=== PATIENT | male | born 1965 | race Caucasian/White ===

== ENCOUNTER 2018-01-19 09:38 | Emergency (ER) | payer OTHER ==
[~2018-01-19] VITALS: Ht 190.5 cm; Wt 81.6 kg
[2018-01-19] MEDS ORDERED: DULOXETINE HCL60 MG PO (09:56)
--- NOTE | 2018-01-19 10:05 | ED GI/GU/ABDOMINAL COMPLAINT ---
History of Present Illness General Chief Complaint: Abdominal Pain/Flank Pain Stated Complaint: LFT FLANK PAIN VOMITING Source: patient, family, old records Exam Limitations: no limitations Vital Signs & Intake/Output Vital Signs & Intake/Output Vital Signs Date Time Temp Pulse Resp B/P B/P Pulse O2 O2 Flow FiO2 Mean Ox Delivery Rate 01/19 1516 97.4 68 18 135/70 98 Room Air Room Air 01/19 1237 98.0 60 18 136/78 100 Room Air 01/19 1025 98 Room Air Room Air 01/19 0951 96.1 108 28 169/108 99 Room Air Allergies Coded Allergies: morphine (Intermediate, HIVES 01/19/18) Reconcile Medications Duloxetine HCl 60 MG CAPSULE.DR 1 CAP PO DAILY UNKNOWN (Reported) Hydrocodone/Acetaminophen ([place] 5-325 Tablet) 5 MG-325 MG TABLET 1-2 TAB PO Q4-6 PRN PRN severe pain Ibuprofen 600 MG TABLET 1 TAB PO TID pain with food Ondansetron (Zofran Odt) 4 MG TAB.RAPDIS 1 TAB SL TID PRN nausea Triage Note: PT VOMITTING ALL MORNING, PT VOMITTING THIS AM AND STATES THAT THE VOMIT WAS BROWN AND NOT HIS CEREAL. LEFT LOWER BACK PAIN 10/10 PT IS CRYING AND SHAKING IN TRIAGE AND HARD TO SPEAK TO AND GET STORY.. PT IS ON CHRONIC PAIN MANAGMENT. 2 WEEKS PT STATES HE HAS HAD HOT FLASHES. PER PT PT SMOKES POT. Triage Nurses Notes Reviewed? yes Onset: Just prior to arrival Duration: hour(s):, constant, continues in ED, getting worse Timing: recent history Quality/Severity: sharpness, severe, vomiting Location: left flank Radiation: no radiation Activities at Onset: rest Prior Abdominal Problems: none Past Sexual History: Unobtainable at this time No Modifying Factors: none Associated Symptoms: abdominal pain, loss of appetite, nausea/vomiting HPI: Several hours prior to admission patient awoke with severe sharp progressive left flank pain nonradiating constant associated with nausea vomiting diaphoresis. He denies fever chills diarrhea chest pain cough shortness breath headache dysuria rash bleeding. Past History Travel History Traveled to [place] past 21 day No Medical History Any Pertinent Medical History? see below for history Musculoskeletal: chronic back pain Tetanus Vaccine: 05/31/12 Surgical History Surgical History: non-contributory Psychosocial History What is your primary language [place] Tobacco Use: Quit >30 days ago Family History Hx Contributory? No Review of Systems Review of Systems Constitutional: Reports: see HPI, diaphoresis. EENTM: Reports: no symptoms. Respiratory: Reports: no symptoms. Cardiovascular: Reports: no symptoms. GI: Reports: see HPI, abdominal pain, nausea, vomiting. Genitourinary: Reports: no symptoms. Musculoskeletal: Reports: no symptoms. Skin: Reports: no symptoms. Neurological/Psychological: Reports: no symptoms. Hematologic/Endocrine: Reports: no symptoms. Immunologic/Allergic: Reports: no symptoms. All Other Systems: Reviewed and Negative Physical Exam Physical Exam General Appearance: well developed/nourished, alert, awake, anxious, severe distress, thin Head: atraumatic, normal appearance Eyes: Bilateral: normal appearance, EOMI, normal inspection. Ears, Nose, Throat, Mouth: hearing grossly normal, moist mucous membrane Neck: normal inspection, supple, full range of motion, normal alignment Respiratory: normal breath sounds, chest non-tender, no respiratory distress, quiet respiration, lungs clear Cardiovascular: regular rate/rhythm, normal peripheral pulses, norml femoral pulses equa Peripheral Pulses: 4+ carotid (R), 4+ carotid (L) Gastrointestinal: normal bowel sounds, soft, non-tender, no organomegaly Male Genitals: normal genitalia Back: normal inspection, normal range of motion, no vertebral tenderness Extremities: normal range of motion, no ligament instability Neurologic/Psych: no motor/sensory deficits, awake, alert, oriented x 3, normal gait, normal mood/affect, lard maker II-XII nml as tested Skin: intact, normal color, diaphoresis Core Measures ACS in differential dx? No Sepsis Present: No Sepsis Focused Exam Completed? No Progress Differential Diagnosis: gastritis, pancreatitis, PUD/GERD, ureterolithiasis Plan of Care: Orders Procedure Date/time Status URINALYSIS 01/19 0950 Complete LIPASE 01/19 0950 Complete COMPREHENSIVE METABOLIC PANEL 01/19 0950 Complete CBC WITHOUT DIFFERENTIAL 01/19 0950 Complete Current Medications Sig/Vamshi Start time Last Medication Dose Stop Time Status Admin Meperidine HCl 100 MG ONCE ONE 01/19 1000 CAN (Demerol) 01/19 1001 Laboratory Tests 01/19/18 1316: Urinalysis LIGHT H, Urine Color YEL, Urine Clarity HAZY H, Urine pH 7.5, Ur Specific [place] 1.020, Urine Protein 30 H, Urine Ketones >=80, Urine Nitrite NEG, Urine Bilirubin NEG, Urine Urobilinogen 0.2, Ur Leukocyte Esterase NEG, Ur Microscopic SEDIMENT EXAMINED, Urine RBC RARE, Ur Epithelial Cells FEW, Urine Bacteria FEW H, Urine Hemoglobin NEG, Urine Glucose NEG 01/19/18 1010: Anion Gap 15, Estimated GFR > 60, BUN/Creatinine Ratio 23.3, Glucose 131 H, Calcium 10.4 H, Total Bilirubin 0.9, AST 22, ALT 26, Alkaline Phosphatase 81, Total Protein 7.6, Albumin 4.6, Globulin 3.0, Albumin/Globulin Ratio 1.5, Lipase 181, CBC w Diff MAN DIFF ORDERED, RBC 4.76, MCV 95.7 H, MCH 33.2 H, MCHC 34.6, RDW 12.3, MPV 7.3 L, Gran % 86.8 H, Lymphocytes % 7.8 L, Monocytes % 4.1, Eosinophils % 1.1, Basophils % 0.2, Absolute Granulocytes 16.9 H, Segmented Neutrophils 82 H, Band Neutrophils 5, Absolute Lymphocytes 1.5, Lymphocytes 9 L, Monocytes 2, Absolute Monocytes 0.8 H, Eosinophils 2, Absolute Eosinophils 0.2, Absolute Basophils 0, Platelet Estimate ADEQUATE, Normocytic RBCs VERIFIED, Normochromic RBCs VERIFIED Diagnostic Imaging: Viewed by Me: CT Scan. Discussed w/RAD: CT Scan. Radiology Impression: 1. No evidence of renal stones or obstructive uropathy. 2. No acute bowel pathology. 3. 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 4. Degenerative changes L5-S1 level. Initial ED EKG: none Departure Departure Time of Disposition: 1406 Disposition: HOME OR SELF CARE Condition: Stable Clinical Impression Primary Impression: Acute left flank pain Secondary Impressions: Dehydration, Nausea and vomiting Referrals: [place] VILCHIS,Vamsi Blanchard (PCP/Family) Rigoberto Sethi MD Call for urology follow up Departure Forms: Customer Survey General Discharge Information Prescriptions: Current Visit Scripts Ibuprofen 1 TAB PO TID #30 TAB with food Ondansetron (Zofran Odt) 1 TAB SL TID PRN nausea #15 TAB Hydrocodone/Acetaminophen ([place] 5-325 Tablet) 1-2 TAB PO Q4-6 PRN PRN severe pain #15 TAB
[2018-01-19 10:19] LABS: ABSOLUTE BASOPHIL COUNT 0 /CUMM (0.0-0.2); ABSOLUTE EOSINOPHIL COUNT 0.2 /CUMM (0.0-0.7); ABSOLUTE GRANULOCYTE CT 16.9 /CUMM (1.4-6.5); ABSOLUTE LYMPH COUNT 1.5 /CUMM (1.2-3.4); ABSOLUTE MONOCYTE COUNT 0.8 /CUMM (0.10-0.60); BASOPHIL % 0.2 % (0.0-2.0); EOSINOPHIL % 1.1 % (0-5); GRANULOCYTE % 86.8 % (42.2-75.2); HEMATOCRIT 45.5 % (42-52); MEAN CORPUSCULAR HGB 33.2 PG (27.0-31.0); MEAN CORPUSCULAR HGB CONC 34.6 G/DL (33.0-37.0); MEAN CORPUSCULAR VOLUME 95.7 FL (80.0-94.0); MEAN PLATELET VOLUME 7.3 FL (7.4-10.4); PLATELET COUNT 400 /CUMM (130-400); RBC DISTRIBUTION WIDTH 12.3 % (11.5-14.5); RED BLOOD CELL CT 4.76 /CUMM (4.70-6.10); WHITE BLOOD CELL COUNT 19.4 /CUMM (4.8-10.8)
--- NOTE | 2018-01-19 12:26 | CT SCAN REPORT ---
EXAMINATION: CT ABDOMEN AND PELVIS WITHOUT CONTRAST CLINICAL INFORMATION: Renal colic. Left flank pain. COMPARISON: None TECHNIQUE: Multidetector volumetric imaging was performed from the superior aspect of the liver through the pubic symphysis. Sagittal and coronal reformatted images were obtained on the technologist's workstation. DLP: 275.80 mGy-cm FINDINGS: LUNG BASES: The visualized lung bases are unremarkable. LIVER, GALLBLADDER, AND BILIARY TREE: The liver is normal in size, shape, and attenuation. No focal hepatic lesion or biliary ductal dilatation is present. The gallbladder is unremarkable with no evidence of radiopaque gallstones, gallbladder wall thickening, or obvious pericholecystic inflammatory changes. PANCREAS: Unremarkable. SPLEEN: Unremarkable. ADRENAL GLANDS: Unremarkable. KIDNEYS AND URETERS: The kidneys are normal in size, shape, and attenuation. No hydronephrosis, hydroureter, or calculi seen. No perinephric stranding. BLADDER: Unremarkable. GASTROINTESTINAL TRACT: No acute bowel pathology. Assessment of the stomach and bowel loops is limited due to incomplete distention. Nonobstructive bowel gas pattern. Fatty structure noted at the junction of second and third portion of duodenum likely represents a lipoma (series 2 image 38) ABDOMINAL WALL: No significant hernia is appreciated. LYMPH NODES: Normal. VASCULAR: Unremarkable. PELVIC VISCERA: Unremarkable. OSSEOUS STRUCTURES: Degenerative changes L5-S1 level. No acute or suspicious osseous abnormality. IMPRESSION: 1. No evidence of renal stones or obstructive uropathy. 2. No acute bowel pathology. 3. 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 4. Degenerative changes L5-S1 level.
[2018-01-19] MEDS ORDERED: ZOFRAN ODT4 M1 SL (14:08)
[2018-01-19] MEDS ORDERED: IBUPROFEN600 M1 PO (14:08)
[2018-01-19] MEDS ORDERED: NORCO 5-325 TA1 EACH PO (14:08)
[2018-01-19 15:16] VITALS: BP 135/70
== END 2018-01-19 15:16 ==
LOC: ERH 09:38
PROVIDERS: Emergency Medicine
DX: R10.9 Unspecified abdominal pain (principal); E86.0 Dehydration; R11.2 Nausea with vomiting, unspecified
CPT/HCPCS: 74176; 81001; 96361; 96365; 96375; 99291; J1885; J2405

== ENCOUNTER 2018-01-20 01:50 | Inpatient (IN) | payer OTHER ==
[~2018-01-20] VITALS: Ht 190.5 cm; Wt 81.6 kg
[~2018-01-20 01:50] MED LIST: DULOXETINE HCL60 MG PO; IBUPROFEN600 M1 PO; NORCO 5-325 TA1 EACH PO; ZOFRAN ODT4 M1 SL
--- NOTE | 2018-01-20 02:02 | ED GI/GU/ABDOMINAL COMPLAINT ---
History of Present Illness General Chief Complaint: Abdominal Pain/Flank Pain Stated Complaint: SEEN EARLY TODAY FOR ABD PAIN Source: patient, old records Exam Limitations: no limitations Vital Signs & Intake/Output Vital Signs & Intake/Output Vital Signs Date Time Temp Pulse Resp B/P B/P Pulse O2 O2 Flow FiO2 Mean Ox Delivery Rate 01/20 0216 Room Air 01/20 0156 97.7 87 22 169/116 100 Room Air Allergies Coded Allergies: morphine (Intermediate, HIVES 01/20/18) Reconcile Medications Duloxetine HCl 60 MG CAPSULE.DR 1 CAP PO DAILY UNKNOWN (Reported) Hydrocodone/Acetaminophen ([place] 5-325 Tablet) 5 MG-325 MG TABLET 1-2 TAB PO Q4-6 PRN PRN severe pain Ibuprofen 600 MG TABLET 1 TAB PO TID pain with food Ondansetron (Zofran Odt) 4 MG TAB.RAPDIS 1 TAB SL TID PRN nausea Triage Note: TRIAGE: PATIENT TO ER FROM HOME REPORTS SEEN HERE EARLIER TODAY, "DIDN'T FIND ANYTHING." PATIENT REPORTS PAIN TO L FLANK SINCE YESTERDAY AM, SINCE 10:30PM PAIN IN L FLANK AND SEVERE PAIN IN L ABDOMEN. +NAUSEA/VOMITTING DESPITE TAKING ZOFRAN AT APPROX 11PM AND PAIN MEDICATION. REPORTS HAS NOT URINATED SINCE HE LEFT THE ED THOUGH OTHERWISE DENIES ANY URINARY DIFFICULTIES/ DISCOMFORT. PATIENT WRITHING ON STRETCHER, UNABLE TO REMAIN STILL. MD AWAD AT BEDSIDE IN TRIAGE FOR EVAL. Triage Nurses Notes Reviewed? yes HPI: Patient comes back to the emergency department with worsening pain in his left flank and it is now radiating into his left mid abdomen. The pain started this morning associated with nausea and vomiting. Patient was seen in the emergency department and everything was normal with the exception of white blood cell count of 19,000. Patient had a CAT scan which was normal and a urine which is not showing any blood. Of note his calcium level was slightly elevated at 10.4. Patient was subsequently sent home however the pain worsened and is now mainly in his left mid abdomen. He continues to have nausea and vomiting. The pain is 10 out of 10. The pain is sharp and cramping and burning in nature. It radiates as noted above. The pain is constant. There are no aggravating or mitigating factors. Past History Travel History Traveled to [place] past 21 day No Medical History Any Pertinent Medical History? see below for history Musculoskeletal: chronic back pain Tetanus Vaccine: 05/31/12 Surgical History Surgical History: non-contributory Psychosocial History What is your primary language Upper Sorbian Tobacco Use: Quit >30 days ago ETOH Use: occasional use Illicit Drug Use: denies illicit drug use Family History Hx Contributory? No Review of Systems Review of Systems Constitutional: Reports: no symptoms. EENTM: Reports: no symptoms. Respiratory: Reports: no symptoms. Cardiovascular: Reports: no symptoms. GI: Reports: see HPI, abdominal pain, nausea, vomiting. Genitourinary: Reports: no symptoms. Musculoskeletal: Reports: see HPI, back pain. Skin: Reports: no symptoms. Neurological/Psychological: Reports: no symptoms. Hematologic/Endocrine: Reports: no symptoms. Immunologic/Allergic: Reports: no symptoms. All Other Systems: Reviewed and Negative Physical Exam Physical Exam General Appearance: well developed/nourished, alert, awake, anxious, severe distress Head: atraumatic, normal appearance Eyes: Bilateral: PERRL, EOMI, other (ANICTERIC). Ears, Nose, Throat, Mouth: hearing grossly normal, DRYMUCOSA Neck: normal inspection, supple, full range of motion Respiratory: normal breath sounds, chest non-tender, no respiratory distress, lungs clear Cardiovascular: regular rate/rhythm, normal peripheral pulses Gastrointestinal: normal bowel sounds, soft, no organomegaly, tenderness (LMQ) Back: normal inspection, normal range of motion Neurologic/Psych: no motor/sensory deficits, awake, alert, oriented x 3, normal mood/affect Core Measures ACS in differential dx? No Sepsis Present: No Sepsis Focused Exam Completed? No Progress Differential Diagnosis: bowel obstruction, cholecystitis, diverticulitis, gastritis, hepatitis, ischemic bowel, inflamm bowel dis, pancreatitis, peptic ulcer, PUD/GERD Plan of Care: Orders Procedure Date/time Status Add-on Test (ER Only) 01/20 0257 Active EKG 01/20 0211 Active LIPASE 01/20 0155 Complete COMPREHENSIVE METABOLIC PANEL 01/20 015 Complete CBC WITHOUT DIFFERENTIAL 01/20 015 Complete AMYLASE 01/20 015 Complete Current Medications Sig/Vamshi Start time Last Medication Dose Stop Time Status Admin Ketorolac 30 MG ONCE ONE 01/20 0300 UNVr Tromethamine 01/20 030 (Toradol) Sodium Chloride 1,000 ML BOLUS ONE 01/20 030 UNVr (Normal Saline 0.9%) 01/20 0359 Sodium Chloride 1,000 ML BOLUS ONE 01/20 0215 AC 01/20 (Normal Saline 0.9%) 01/204 0206 Laboratory Tests 01/20/18 0208: Anion Gap 16, Estimated GFR > 60, BUN/Creatinine Ratio 17.8, Glucose 137 H, Calcium 10.0, Total Bilirubin 1.2, AST 21, ALT 33, Alkaline Phosphatase 81, Total Protein 7.0, Albumin 4.3, Globulin 2.7, Albumin/Globulin Ratio 1.6, Amylase 110, Lipase 440 H, CBC w Diff MAN DIFF ORDERED, RBC 4.70, MCV 98.1 H, MCH 32.1 H, MCHC 32.8 L, RDW 12.6, MPV 7.6, Gran % 83.4 H, Lymphocytes % 10.6 L, Monocytes % 4.9, Eosinophils % 0.7, Basophils % 0.4, Absolute Granulocytes 16.7 H, Segmented Neutrophils 84 H, Band Neutrophils 1, Absolute Lymphocytes 2.1, Lymphocytes 11 L, Monocytes 4, Absolute Monocytes 1.0 H, Absolute Eosinophils 0.1, Absolute Basophils 0.1, Platelet Estimate INCREASED, Hypochromic-Microcytic 1+, Ovalocytes FEW, Stomatocytes FEW, Fld Total RBCs Counted 100 Initial ED EKG: SR, PAC, NSSTT CHANGES Comments: CT REVIEWED FROM EARLIER. Departure Departure Disposition: STILL A PATIENT Condition: Stable Clinical Impression Primary Impression: Leukocytosis Secondary Impressions: Elevated lipase, Upper abdominal pain, unspecified Referrals: [place] VILCHIS,Vamsi Blanchard (PCP/Family) Departure Forms: Customer Survey General Discharge Information Observation Note Spoke With: Conor Uriarte MD Physician Advisor Notified: DELMI VILCHIS,ELISSA [facility] [address] Patient In: Non-ED OBS Care Area Rationale for Observation: My rational for observation is as follows [NPO, IV FLUIDS, PAIN CONTROL, GI CONSULTATION].
[2018-01-20 02:17] LABS: ABSOLUTE BASOPHIL COUNT 0.1 /CUMM (0.0-0.2); ABSOLUTE EOSINOPHIL COUNT 0.1 /CUMM (0.0-0.7); ABSOLUTE GRANULOCYTE CT 16.7 /CUMM (1.4-6.5); ABSOLUTE LYMPH COUNT 2.1 /CUMM (1.2-3.4); BASOPHIL % 0.4 % (0.0-2.0); EOSINOPHIL % 0.7 % (0-5); GRANULOCYTE % 83.4 % (42.2-75.2); HEMATOCRIT 46.1 % (42-52); MEAN CORPUSCULAR HGB 32.1 PG (27.0-31.0); MEAN CORPUSCULAR HGB CONC 32.8 G/DL (33.0-37.0); MEAN CORPUSCULAR VOLUME 98.1 FL (80.0-94.0); MEAN PLATELET VOLUME 7.6 FL (7.4-10.4); PLATELET COUNT 412 /CUMM (130-400); RBC DISTRIBUTION WIDTH 12.6 % (11.5-14.5)
--- NOTE | 2018-01-20 03:14 | History & Physical ---
Ruben VILCHIS,Murphy 01/20/18 0313: General Information and HPI MD Statement: I have seen and personally examined LYNN VILLAFANA and documented this H&P. The patient is a 52 year old M who presented with a patient stated chief complaint of [L back and flank pain, nausea and vomiting]. Source of Information: patient Exam Limitations: no limitations History of Present Illness: Patient is a 52-year-old male with a piece MH significant for chronic back pain, chronic lung disease who presented to the [facility] ED yesterday complaining of intractable back/flank pain, nausea and vomiting. He got a CT abdomen and pelvis which showed no acute abnormalities, lab work was only significant for leukocytosis with bandemia, mild hypercalcemia. His pain was relieved by IV Demerol and he was sent home. His pain came back in the middle of the night awakening him from sleep prompting him to return to the ED. Repeat lab work showed persistent leukocytosis. He continues to complain of 10/10 pain , and has had reportedly 10-12 episodes of vomiting today. He endorses intermittent fever and chills. He denies any dysuria, hematuria, diarrhea, chest pain, shortness of breath. During the exam patient had several episodes of retching and some dark red/ coffee-ground emesis. Allergies/Medications Allergies: Coded Allergies: morphine (Intermediate, HIVES 01/20/18) Home Med list Duloxetine HCl 60 MG CAPSULE. 1 CAP PO DAILY UNKNOWN (Reported) Hydrocodone/Acetaminophen (Russell 5-325 Tablet) 5 MG-325 MG TABLET 1-2 TAB PO Q4-6 PRN PRN severe pain Ibuprofen 600 MG TABLET 1 TAB PO TID pain with food Ondansetron (Zofran Odt) 4 MG TAB.RAPDIS 1 TAB SL TID PRN nausea Past History Travel History Traveled to [place] past 21 day No Medical History Neurological: NONE EENT: NONE Cardiovascular: NONE Respiratory: NONE Gastrointestinal: NONE Hepatic: NONE Renal: NONE Musculoskeletal: chronic back pain Psychiatric: NONE Endocrine: NONE Blood Disorders: NONE Cancer(s): NONE TRAVELER CHANGER/Reproductive: NONE Other Medical Hx: chronic lyme Tetanus Vaccine: 05/31/12 Surgical History Surgical History: non-contributory Past Family/Social History Family History Relations & Conditions if any Relation not specified for: *No pertinent family history Psychosocial History Primary Language: Chilean Smoking Status: Former Smoker ETOH Use: occasional use Illicit Drug Use: marijuana Review of Systems Review of Systems Constitutional: Reports: chills, fever. EENTM: Reports: no symptoms. Cardiovascular: Reports: no symptoms. Respiratory: Denies: cough, orthopnea, short of breath. GI: Reports: abdominal pain, nausea, vomiting. Denies: constipation, diarrhea, melena, bloody stool. Genitourinary: Reports: no symptoms. Musculoskeletal: Reports: back pain. Skin: Reports: no symptoms. Neurological/Psychological: Reports: no symptoms. Exam & Diagnostic Data Last 24 Hrs of Vital Signs/I&O Vital Signs Date Time Temp Pulse Resp B/P B/P Pulse O2 O2 Flow FiO2 Mean Ox Delivery Rate 01/20 0307 97.5 91 20 155/89 99 Room Air 01/20 0216 Room Air 01/20 0156 97.7 87 22 169/116 100 Room Air Intake & Output 01/20 0800 01/20 0000 01/19 1600 Intake Total 2000 Output Total 100 Balance 1900 Intake, IV 2000 Output, 100 Emesis Patient 180 lb Weight Weight Reported by Patient Measurement Method Physical Exam General Appearance Alert, Oriented X3, Cooperative, Severe Distress Skin Temp/Moisture Exam: Warm/Dry Cardiovascular Regular Rate, Normal S1, Normal S2 Lungs Clear to Auscultation, Normal Air Movement Abdomen tender to palpation of the LUQ, RLQ, and umbilical area, no CVA tenderness Neurological Normal Gait, Normal Speech, Strength at 5/5 X4 Ext, Sensation Intact, Cranial Nerves 3-12 NL Extremities No Clubbing, No Cyanosis, No Edema Vascular Normal Pulses, Pulses Symmetrical Last 24 Hrs of Labs/Adán: Laboratory Tests 01/20/18 0208: Anion Gap 16, Estimated GFR > 60, BUN/Creatinine Ratio 17.8, Glucose 137 H, Calcium 10.0, Total Bilirubin 1.2, AST 21, ALT 33, Alkaline Phosphatase 81, Troponin I Pending, Total Protein 7.0, Albumin 4.3, Globulin 2.7, Albumin/ Globulin Ratio 1.6, Amylase 110, Lipase 440 H, CBC w Diff MAN DIFF ORDERED, RBC 4.70, MCV 98.1 H, MCH 32.1 H, MCHC 32.8 L, RDW 12.6, MPV 7.6, Gran % 83.4 H, Lymphocytes % 10.6 L, Monocytes % 4.9, Eosinophils % 0.7, Basophils % 0.4, Absolute Granulocytes 16.7 H, Segmented Neutrophils 84 H, Band Neutrophils 1, Absolute Lymphocytes 2.1, Lymphocytes 11 L, Monocytes 4, Absolute Monocytes 1.0 H, Absolute Eosinophils 0.1, Absolute Basophils 0.1, Platelet Estimate INCREASED, Hypochromic-Microcytic 1+, Ovalocytes FEW, Stomatocytes FEW, Fld Total RBCs Counted 100 Microbiology 01/21 436 URINE ROUT: Urine Culture - ORD 01/20 417 BLOOD: Blood Culture - RECD 01/21 416 BLOOD: Blood Culture - RECD Diagnostic Data EKG Results significant artifact, will repeat Other Results CT abd/pelvis LUNG BASES: The visualized lung bases are unremarkable. LIVER, GALLBLADDER, AND BILIARY TREE: The liver is normal in size, shape, and attenuation. No focal hepatic lesion or biliary ductal dilatation is present. The gallbladder is unremarkable with no evidence of radiopaque gallstones, gallbladder wall thickening, or obvious pericholecystic inflammatory changes. PANCREAS: Unremarkable. SPLEEN: Unremarkable. ADRENAL GLANDS: Unremarkable. KIDNEYS AND URETERS: The kidneys are normal in size, shape, and attenuation. No hydronephrosis, hydroureter, or calculi seen. No perinephric stranding. BLADDER: Unremarkable. GASTROINTESTINAL TRACT: No acute bowel pathology. Assessment of the stomach and bowel loops is limited due to incomplete distention. Nonobstructive bowel gas pattern. Fatty structure noted at the junction of second and third portion of duodenum likely represents a lipoma (series 2 image 38) ABDOMINAL WALL: No significant hernia is appreciated. LYMPH NODES: Normal. VASCULAR: Unremarkable. PELVIC VISCERA: Unremarkable. OSSEOUS STRUCTURES: Degenerative changes L5-S1 level. No acute or suspicious osseous abnormality. IMPRESSION: 1. No evidence of renal stones or obstructive uropathy. 2. No acute bowel pathology. 3. 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 4. Degenerative changes L5-S1 level. Assessment/Plan Assessment: Patient is a 52-year-old male with a piece MH significant for chronic back pain, chronic lung disease who presented with intractable L back and L flank pain with associated nausea and vomiting, this was initially resolved after receiving demerol in the ED pain. He was discharged home but returned with persistent pain. He is also having dark red/coffee-ground emesis secondary to multiple episodes of retching. He has no associated urinary symptoms. Vital signs on admission: T 97.7, P 87, RR 22, BP 169/6, pulse ox 100% on room air Labs significant for: WBC 20, bands 1, lipase 440 Problem list #Intractable left back and flank pain #Nausea and vomiting #Leukocytosis #Hypertension, Likely secondary to pain Plan -Place in observation on the general medicine floor -Follow-up urine toxicology -Pain control with by mouth Dilaudid, CT PRODUCTION FINISHER was reviewed showing no claim history of narcotics -Follow-up urinalysis for microscopic hematuria, discussed the CT abdomen and pelvis with hotel receptionist radiologist at [facility] Dr. Talavera, who confirmed that there is no nephrolithiasis seen. -Follow up lactic acid and CRP -Follow-up blood cultures -Repeat lipase and LFTs in a.m., low suspicion for pancreatitis given presentation, elevated lipase may be secondary to repeated episodes of emesis -IV Protonix -Repeat EKG when patient is more comfortable to avoid artifact -Control nausea with IV Zofran and Phenergan -Continue home duloxetine Diet: Nothing by mouth DVT prophylaxis: Lovenox, Alps CODE STATUS: Full code As Ranked By This Provider Problem List: 1. Elevated lipase 2. Leukocytosis 3. Upper abdominal pain, unspecified 4. Nausea and vomiting Core Measures/Misc (07/06) Acute Coronary Syndrome ACS Diagnosis: No Congestive Heart Failure Congestive Heart Failure Diagnosis No Cerebrovascular Accident CVA/TIA Diagnosis: No VTE (View Protocol) VTE Risk Factors Age>40 No Mechanical VTE Prophylaxis d/t N/A MechProphylax Ordered No VTE Pharm Prophylaxis d/t NA PharmProphylax ordered Sepsis (View protocol) Sepsis Present: No Observation Initial Note - I have personally examined LYNN VILLAFANA on 01/20/18 at 0441. The disposition of LYNN VILLAFANA is uncertain at this time and before a determination can be made, he requires a period of observation for the following reasons [intractable L back and flank pain with nausea and vomiting] Meng Dutton 01/20/18 0456: Resident Review Statement Resident Statement: examined this patient, discussed with international student counselor, reviewed images Other Findings: 52 year old gentleman former smoker (quit 6 months ago), marijuana user, chronic back pain and chronic lyme disease, came to [facility] ED on morning of 10/21/17 for left side abdominal pain and vomiting CT abdomen and pelvis was done which was unremarkable and he was sent home on pain medications. Return later as his symptoms did not improve. On interview reports having diffuse abdominal pain however mostly left-sided flank pain, severe 10 out of 10, multiple episodes of emesis since the past 2 days associated with decreased by mouth intake. Last few episodes of emesis have been coffee-ground. Endorses some fever and chills. Denies chest pain, shortness of breath, diarrhea, constipation, previous similar episodes, hematuria, history of kidney stones/gallstones, new food recently. Vitals temperature 97.5, heart rate 91, blood pressure 169/116-->155/89 , 99% on room air Labs pertinent for WBC of 20 with a band of 5 which trended down to 1, hemoglobin 15.1, hematocrit 46.1, platelet for 112, sodium 139, potassium 2.9, chloride 101, B1 16, creatinine 0.9, glucose 137, lactic acid pending, calcium 10, AST 21, ALT 33, ALP 81,, amylase 110, lipase 440, repeat UA pending, U tox pending CT ABDOMEN AND PELVIS WITHOUT CONTRAST IMPRESSION: 1. No evidence of renal stones or obstructive uropathy. 2. No acute bowel pathology. 3. 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 4. Degenerative changes L5-S1 level. Assessment: In view of his leukocytosis clinical picture of severe left flank pain and vomiting he could possibly have passed a kidney stone. CT abdomen and pelvis without contrast reliably detects hydronephrosis and is the best diagnostic investigation for nephrolithiasis. Radiologist was also called to view the images again and no acute pathology was noted. Elevated lipase could also be secondary to his vomiting. Other differentials are gastroenteritis versus cannabis hyperemesis syndrome. Plan: We'll admit to general medicine floor as an observation, vitals per protocol Will repeat lipase and LFTs in the morning, will repeat UA Follow-up lactic, CRP Will repeat EKG has the first one had extensive artifact Keep patient nothing by mouth, IV PPI daily pain control with Toradol and Dilaudid for severe pain. Nothing by mouth for now advanced diet as tolerated Zofran for nausea Gentle fluids for hydration Continue home medication of Cymbalta CPMP was reviewed and no record was present. DVT prophylaxis with subcutaneous Lovenox Full code Conor Uriarte 01/20/18 0514: Attending MD Review Statement Attending Statement Attending MD Statement: examined this patient, discuss w/resident/PA/[employer], agreed w/resident/PA/[employer], reviewed EMR data (avail), reviewed images, amended to note Attending Assessment/Plan: CC: Abdominal pain, nausea, vomiting PMH: Chronic back pain, "chronic Lyme disease" Patient was seen in ER are earlier in the day for abdominal pain and flank pain. Patient woke up with the pain, severe, left-sided flank and abdominal pain, radiating to back, associated with nausea and several episodes of vomiting, could not eat anything so he came to ER. Patient was evaluated in ER with labs and CT scan, had mild leukocytosis otherwise unremarkable, received some pain medications, symptomatic it improved and then discharged. After going home patient tried to sleep but then pain recurred with vomiting, coffee-ground emesis, severe retching. All this while he was also feeling fever and chills, he denies any urinary frequency, burning, constipation, shortness of breath, chest pain. Patient is moaning in pain and provides limited history. He denies any history of renal stone, gallbladder stone. He states that he had fever and vomiting several years back when he was diagnosed to have " chronic Lyme disease " Vitals: Afebrile, pulse 87, RR 22, blood pressure 169/116, saturating well on room air. On exam: A O 3, cooperative, no acute distress, neck supple, JVD normal, no lymphadenopathy, mucosa moist, no focal neurological deficit, no dependent edema , no obvious skin rashes or inflammation CVS: S1-S2, RRR. RS: Clear to auscultate bilaterally. Abdomen: diffusely Tender, soft, no guarding or rigidity , ND, bowel sounds present. CT abdomen and pelvis without IV contrast: (01/19/18) 1. No evidence of renal stones or obstructive uropathy. 2. No acute bowel pathology. 3. 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 4. Degenerative changes L5-S1 level. Assessment and plan 52-year-old male with past medical history significant for chronic back pain present in ER for 1 day episode of severe flank pain, radiating to abdomen and back, several episodes of nausea, vomiting, now coffee-ground emesis, retching, mild fever and chills. No urinary symptoms, no history of renal stones. Patient was evaluated in ER earlier today, was given meperidine and Toradol with symptomatic relief and patient was discharged home. Patient came back again for similar symptoms, appears restless, moaning in pain and provides limited history. On examination he is diffusely tender all over her abdomen and left flank, no localization, no guarding or rigidity, abdomen is soft, Espinal's sign negative. His labs are unremarkable except mild leukocytosis and left shift which is worsened as compared to morning, his lipase is elevated from 181 to 440. Elevation in lipase could be secondary to vomiting itself, does not appear to be pancreatitis at this point but patient would benefit from observation on Gen. medicine to exclude this possibility of pancreatitis. He may have gastritis which may need to nausea vomiting and abdominal pain. CT imaging reviewed with radiologist again who did not find any focalizing abnormality. + Abdominal pain unclear etiology + Nausea vomiting + Leukocytosis - Place in observation on Gen. medicine - Obtain blood culture - Trend lactate - Repeat LFT, lipase and CRP in a.m. - Adequate pain control - Gentle hydration - Check CT PRODUCTION FINISHER records - Protonix 40 mg IV - When necessary Zofran or Phenergan for nausea vomiting - Repeat CBC in a.m. - DVT prophylaxis with Alps only
[2018-01-20 04:41] VITALS: BP 170/110
[2018-01-20 06:51] VITALS: BP 162/90
--- NOTE | 2018-01-20 07:12 | PN- Housestaff ---
Phuc VILCHIS,Damon 01/20/18 0712: Subjective Follow-up For: Abdominal Pain Subjective: Mr Acuña was seen and examined this morning. Appears somnolent and states that he feels exhausted. States that his pain is significantly better. Rated at a 2/10 in severity. States that he has had significant relief from pain medication. Fluids currently running. States does not have much or an appetitte. Denies any fever, chills, nausea or vomiting. Review of Systems Constitutional: Reports: see HPI. Objective Last 24 Hrs of Vital Signs/I&O Vital Signs Date Time Temp Pulse Resp B/P B/P Pulse O2 O2 Flow FiO2 Mean Ox Delivery Rate 01/20 1637 80 168/100 01/20 1420 98.8 67 18 170/110 99 Room Air 01/20 0651 97.9 82 20 162/90 97 Room Air 01/20 0441 98.0 64 20 170/110 98 Room Air 01/20 0307 97.5 91 20 155/89 99 Room Air 01/20 0216 Room Air 01/20 0156 97.7 87 22 169/116 100 Room Air Intake & Output 01/20 1600 01/20 0800 01/20 0000 Intake Total 425 2150 Output Total 450 Balance 425 1700 Intake, IV 425 2150 Intake, Oral 0 Output, 100 Emesis Output, Urine 350 Patient 81.647 kg Weight Weight Reported by Patient Measurement Method Physical Exam General Appearance: Alert, Oriented X3, Cooperative, Mild Distress HEENT: Mucous Membr. moist/pink Cardiovascular: Regular Rate, Normal S1, Normal S2 Lungs: Clear to Auscultation Abdomen: Normal Bowel Sounds, Soft, Mild tenderness noted on light palpation. Espinal +. Tenderness noted on LUQ Neurological: Normal Gait, Normal Speech, Normal Tone Extremities: No Edema Current Medications: Current Medications Sig/Vamshi Start time Last Medication Dose Route Stop Time Status Admin Acetaminophen 650 MG Q4P PRN 01/20 0400 AC PO Acetaminophen 1,000 MG ONCE ONE 01/20 0215 DC 01/20 N/A 1 UNIT IV 01/20 0229 0213 Acetaminophen 0 .STK-MED ONE 01/20 0209 DC IV Amlodipine Besylate 5 MG ONCE ONE 01/20 1430 DC 04/ PO 01/20 1431 1637 Chlorhexidine 1 GM .STK-MED ONE 01/20 1352 DC Gluconate TOP 01/20 1353 Dextrose/Sodium 1,000 ML Q10H 01/20 0945 DC 01/20 Chloride IV 1001 Duloxetine HCl 60 MG DAILY 01/20 1000 AC 01/20 PO 1004 Enoxaparin Sodium 40 MG DAILY 01/20 1000 CAN SC Hydralazine HCl 10 MG ONCE ONE 01/20 1430 CAN PO 01/20 1431 Hydromorphone HCl 2 MG Q6P PRN 01/20 0415 AC 01/20 PO 0507 Ketorolac 30 MG Q6-PRN PRN 01/20 0400 AC 01/20 Tromethamine IV 1635 Ketorolac 0 .STK-MED ONE 01/20 0306 DC Tromethamine .ROUTE Ketorolac 30 MG ONCE ONE 01/20 0300 DC 01/20 Tromethamine IV 01/20 0301 0305 Omeprazole 20 MG BID 01/20 2200 AC PO Ondansetron HCl 4 MG Q6P PRN 01/20 0400 AC IV Ondansetron HCl 4 MG ONCE ONE 01/20 0215 DC 01/20 IV 01/20 0216 0213 Ondansetron HCl 0 .STK-MED ONE 01/20 0209 DC .ROUTE Pantoprazole Sodium 0 .STK-MED ONE 01/20 0406 DC IV Pantoprazole Sodium 40 MG DAILY 01/20 0400 DC 01/20 IV 0407 Patient Medication 1 ED ONE ONE 01/20 1630 DC Teaching ED 01/20 1631 Promethazine HCl 25 MG ONCE ONE 01/20 0330 DC 01/20 IV 01/20 0331 0330 Promethazine HCl 0 .STK-MED ONE 01/20 0329 DC .ROUTE Sodium Chloride 1,000 ML Q13H 01/20 0400 DC 03 IV 0507 Sodium Chloride 1,000 ML BOLUS ONE 01/20 0300 DC / IV 01/20 0359 0305 Sodium Chloride 1,000 ML BOLUS ONE 01/20 0215 DC 01/20 IV 01/20 0314 0206 Last 24 Hrs of Lab/Adán Results Last 24 Hrs of Labs/Mics: Laboratory Tests 01/20/18 1646: Gastrin Pending 01/20/18 0850: Anion Gap 9, Estimated GFR > 60, BUN/Creatinine Ratio 13.8, Lactic Acid 0.7, Total Bilirubin 1.0, Direct Bilirubin 0.4, AST 14 L, ALT 27, Alkaline Phosphatase 59, C-React Prot High Sens 0.3 L, Total Protein 5.8 L, Albumin 3.4 L, Lipase 58, CBC w Diff NO MAN DIFF REQ, RBC 4.03 L, MCV 96.2 H, MCH 33.1 H , MCHC 34.4, RDW 12.3, MPV 7.6, Gran % 86.7 H, Lymphocytes % 9.6 L, Monocytes % 3.4, Eosinophils % 0, Basophils % 0.3, Absolute Granulocytes 10.1 H, Absolute Lymphocytes 1.1 L, Absolute Monocytes 0.4, Absolute Eosinophils 0, Absolute Basophils 0 01/20/18 0730: Urine Opiates Screen 341.00, Methadone Screen 78, Barbiturate Screen < 60, Ur Phencyclidine Scrn < 6.00, Amphetamines Screen < 100, U Benzodiazepines Scrn < 85, Urine Cocaine Screen < 50, Urine Cannabis Screen > 80.00 H, Urine Color YEL , Urine Clarity CLEAR, Urine pH 6.0, Ur Specific [place] 1.020, Urine Protein NEG, Urine Ketones 40 H, Urine Nitrite NEG, Urine Bilirubin NEG, Urine Urobilinogen 0.2, Ur Leukocyte Esterase NEG, Ur Microscopic EXAM NOT REQUIRED, Urine Hemoglobin NEG, Urine Glucose NEG 01/20/18 0208: Anion Gap 16, Estimated GFR > 60, BUN/Creatinine Ratio 17.8, Glucose 137 H, Calcium 10.0, Total Bilirubin 1.2, AST 21, ALT 33, Alkaline Phosphatase 81, Troponin I < 0.01, Total Protein 7.0, Albumin 4.3, Globulin 2.7, Albumin/ Globulin Ratio 1.6, Amylase 110, Lipase 440 H, CBC w Diff MAN DIFF ORDERED, RBC 4.70, MCV 98.1 H, MCH 32.1 H, MCHC 32.8 L, RDW 12.6, MPV 7.6, Gran % 83.4 H, Lymphocytes % 10.6 L, Monocytes % 4.9, Eosinophils % 0.7, Basophils % 0.4, Absolute Granulocytes 16.7 H, Segmented Neutrophils 84 H, Band Neutrophils 1, Absolute Lymphocytes 2.1, Lymphocytes 11 L, Monocytes 4, Absolute Monocytes 1.0 H, Absolute Eosinophils 0.1, Absolute Basophils 0.1, Platelet Estimate INCREASED, Hypochromic-Microcytic 1+, Ovalocytes FEW, Stomatocytes FEW, Fld Total RBCs Counted 100 Microbiology 01/20 0730 URINE ROUT: Urine Culture - RECD 01/20 417 BLOOD: Blood Culture - RECD 01/21 416 BLOOD: Blood Culture - RECD Assessment/Plan Assessment: Patient is a 52-year-old male with a piece MH significant for chronic back pain, chronic lung disease who presented with intractable L back and L flank pain with associated nausea and vomiting, this was initially resolved after receiving demerol in the ED pain. He was discharged home but returned with persistent pain. He is also having dark red/coffee-ground emesis secondary to multiple episodes of retching. He has no associated urinary symptoms. Vital signs on admission: T 97.7, P 87, RR 22, BP 169/6, pulse ox 100% on room air Labs significant for: WBC 20, bands 1, lipase 440 Problem list #Intractable left back and flank pain #Hematemesis #Nausea and vomiting #Leukocytosis #Hypertension, Likely secondary to pain Plan -Continue in observation on the general medicine floor -Follow-up urine toxicology -GI consultation for evaluation of abdominal pain and hematemesis -Pain control with by mouth Dilaudid, CT PREFITTER was reviewed showing no claim history of narcotics -Follow-up urinalysis for microscopic hematuria, discussed the CT abdomen and pelvis with personnel arbitrator radiologist at [facility] [facility] Dr. Talavera, who confirmed that there is no nephrolithiasis seen. -Repeat CT abdomen and Pelvis with IV contrast. -Follow up lactic acid and CRP -Follow-up blood cultures -Low suspicion for pancreatitis given presentation, elevated lipase may be secondary to repeated episodes of emesis -IV Protonix--> may transition to PO when Able -Control nausea with IV Zofran and Phenergan -Continue home duloxetine Diet: Nothing by mouth, for now, can advance as tolerated. DVT prophylaxis: Lovenox, Alps CODE STATUS: Full code Problem List: 1. Elevated lipase 2. Upper abdominal pain, unspecified 3. Dehydration 4. Nausea and vomiting 5. Acute left flank pain Pain Ratin Pain Location: Left and right upper quadrante Pain Goal: Remain pain free Pain Plan: Dilaudid --> transitioned to morphine Tomorrow's Labs & Rationales: CBC - monitor whites about Ricky Colorado MD 01/20/18 1123: Attending Review Statement Attending Statement Attending MD Statement: examined this patient, discuss w/resident/PA/CRUISE GUIDE, agreed w/resident/PA/CRUISE GUIDE, reviewed EMR data (avail), discussed with nursing, discussed with case mgmt, amended to note Attending Assessment/Plan: The patient was seen and discussed with house staff. Etiology of abdominal/flank pain still unclear. No hematuria present. The patient described dark emesis ( described as coffee grounds) on admission and endorses he had this PANTOGRAPH TRANSFERRER. WBC decreased and H/H decreased (?dilutional). No mention of gastroccult testing of emesis in ED or stool for blood. Pain is better controlled at present. No fever, but + chills. Concern regarding potential PUD. Will obtain CT of abd/pel with contrast and GI consult with Dr. Felix to evaluate. May need conversion to full admission. ADDENDUM: Results of EGD noted. Also patient had CT with contrast showing colonic thickening. ? colitis (no diarrhea). Resident to make Dr. Felix aware. Still with significant nausea and pain. Cannot take po meds. Spoke with pharmacy and nursing. Giving 1 dose of IV Protonix tonight and also IV Dilaudid (trial of 1 dose). Continue Zofran. If still significant pain tomorrow will need to convert to full admission. Follow-up H/H in morning.
[2018-01-20 09:08] LABS: ABSOLUTE BASOPHIL COUNT 0 /CUMM (0.0-0.2); ABSOLUTE EOSINOPHIL COUNT 0 /CUMM (0.0-0.7); ABSOLUTE LYMPH COUNT 1.1 /CUMM (1.2-3.4); ABSOLUTE MONOCYTE COUNT 0.4 /CUMM (0.10-0.60); EOSINOPHIL % 0 % (0-5)
[2018-01-20 09:15] LABS: ABSOLUTE GRANULOCYTE CT 10.1 /CUMM (1.4-6.5); BASOPHIL % 0.3 % (0.0-2.0); GRANULOCYTE % 86.7 % (42.2-75.2); MEAN CORPUSCULAR HGB 33.1 PG (27.0-31.0); MEAN CORPUSCULAR HGB CONC 34.4 G/DL (33.0-37.0); MEAN CORPUSCULAR VOLUME 96.2 FL (80.0-94.0); MEAN PLATELET VOLUME 7.6 FL (7.4-10.4); PLATELET COUNT 335 /CUMM (130-400); RBC DISTRIBUTION WIDTH 12.3 % (11.5-14.5); RED BLOOD CELL CT 4.03 /CUMM (4.70-6.10); WHITE BLOOD CELL COUNT 11.6 /CUMM (4.8-10.8)
[2018-01-20 09:16] LABS: HEMATOCRIT 38.8 % (42-52)
--- NOTE | 2018-01-20 12:56 | Cons- Gastroenterology ---
General Information and HPI Consulting Request Date of Consult: 01/20/18 Requested By: Ricky Colorado MD Reason for Consult: abdominal pain, hematemesis. Source of Information: patient Exam Limitations: no limitations History of Present Illness: Mr. Acuña is a 52-year-old male with a history of chronic back pain who presented to [facility] yesterday with complaints of acute onset of left upper quadrant abdominal pain radiating to his back. The patient notes that the pain started shortly after eating a bowl of cereal and he described it as a dull ache that was severe. He notes the pain radiated around to his back, but not through to his back. He does occasionally have some heartburn that he does not typically take antacids for and he denies any burning epigastric discomfort. He has been having some nausea and vomiting associated with the pain which she describes as coffee grounds along with some streaks of red blood. He has not vomited up any clots. While he states the pain he is having came on acutely he also notes that he has not been feeling well for the past several days and has not been eating well because of his pain. He has some constipation which she attributes to not eating well. He has not had any bright blood per rectum nor does he complain of melena. In the emergency room he is hemodynamically stable and afebrile and an unremarkable CAT scan unremarkable blood work and was initially sent home only to return several hours later with persistent symptoms for which she was admitted. He has been nothing by mouth since admission and has not had any further vomiting since he has been here. Allergies/Medications Allergies: Coded Allergies: morphine (Intermediate, HIVES 01/20/18) Home Med List: Duloxetine HCl 60 MG CAPSULE. 1 CAP PO DAILY UNKNOWN (Reported) Hydrocodone/Acetaminophen ([place] 5-325 Tablet) 5 MG-325 MG TABLET 1-2 TAB PO Q4-6 PRN PRN severe pain Ibuprofen 600 MG TABLET 1 TAB PO TID pain with food Ondansetron (Zofran Odt) 4 MG TAB.RAPDIS 1 TAB SL TID PRN nausea Current Medications: Current Medications Sig/Vamshi Start time Last Medication Dose Route Stop Time Status Admin Acetaminophen 650 MG Q4P PRN 01/20 0400 AC PO Acetaminophen 1,000 MG ONCE ONE 01/20 215 DC 01/20 N/A 1 UNIT IV 04/03 0229 0213 Acetaminophen 0 .STK-MED ONE 01/20 0209 DC IV Dextrose/Sodium 1,000 ML Q10H 01/20 0945 AC 01/20 Chloride IV 1001 Duloxetine HCl 60 MG DAILY 01/20 1000 AC 04 PO 1004 Enoxaparin Sodium 40 MG DAILY 01/20 1000 CAN SC Hydromorphone HCl 2 MG Q6P PRN 01/20 0415 AC 01/20 PO 0507 Ketorolac 30 MG Q6-PRN PRN 01/20 0400 AC Tromethamine IV Ketorolac 0 .STK-MED ONE 01/20 0306 DC Tromethamine .ROUTE Ketorolac 30 MG ONCE ONE 01/20 0300 DC 01/20 Tromethamine IV 01/20 0301 0305 Ondansetron HCl 4 MG Q6P PRN 01/20 0400 AC IV Ondansetron HCl 4 MG ONCE ONE 01/20 0215 DC 01/20 IV 01/20 0216 0213 Ondansetron HCl 0 .STK-MED ONE 01/20 0209 DC .ROUTE Pantoprazole Sodium 0 .STK-MED ONE 01/20 0406 DC IV Pantoprazole Sodium 40 MG DAILY 01/20 0400 AC 01/20 IV 0407 Promethazine HCl 25 MG ONCE ONE 01/20 0330 DC / IV 01/20 0331 0330 Promethazine HCl 0 .STK-MED ONE 01/20 0329 DC .ROUTE Sodium Chloride 1,000 ML Q13H 01/20 0400 DC 01/20 IV 0507 Sodium Chloride 1,000 ML BOLUS ONE 01/20 0300 DC 01/20 IV 01/20 0359 0305 Sodium Chloride 1,000 ML BOLUS ONE 01/20 0215 DC 04/03 IV / 0314 0206 Past History Travel History Traveled to [place] past 21 day No Medical History Blood Transfusion Hx: No Neurological: NONE EENT: NONE Cardiovascular: NONE Respiratory: COPD Gastrointestinal: NONE Hepatic: NONE Renal: NONE Musculoskeletal: chronic back pain Psychiatric: anxiety Endocrine: NONE Blood Disorders: NONE Cancer(s): NONE 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 EENTM: Denies: no symptoms. Cardiovascular: Denies: no symptoms. Respiratory: Denies: no symptoms. GI: Reports: see HPI. Genitourinary: Denies: no symptoms. Musculoskeletal: Reports: back pain, joint pain. Skin: Denies: no symptoms. Neurological/Psychological: Denies: no symptoms. Hematologic/Endocrine: Reports: bleeding. Immunologic/Allergic: Denies: no symptoms. All Other Systems: Reviewed and Negative Exam & Diagnostic Data Vital Signs and I&O Vital Signs Date Time Temp Pulse Resp B/P B/P Pulse O2 O2 Flow FiO2 Mean Ox Delivery Rate 01/20 0651 97.9 82 20 162/90 97 Room Air 01/20 0441 98.0 64 20 170/110 98 Room Air 01/20 0307 97.5 91 20 155/89 99 Room Air 01/20 0216 Room Air 01/20 0156 97.7 87 22 169/116 100 Room Air Intake & Output 01/20 1600 01/20 0400 01/19 1600 01/19 0400 01/18 1600 01/18 0400 Intake Total 150 2000 Output Total 350 100 Balance -200 1900 Intake, IV 150 2000 Intake, Oral 0 Output, 100 Emesis Output, Urine 350 Patient 180 lb 180 lb Weight Weight Reported by Patient Measurement Method Physical Exam General Appearance: well developed/nourished, no apparent distress, alert, awake , comfortable Head: atraumatic, normal appearance Eyes: Bilateral: normal appearance. Ears, Nose, Throat: normal pharynx, normal ENT inspection Neck: normal inspection, supple, full range of motion Respiratory: normal breath sounds, chest non-tender, no respiratory distress Cardiovascular: regular rate/rhythm Gastrointestinal: normal bowel sounds, soft, guarding, tenderness Rectal: deferred Back: normal inspection Extremities: normal inspection, normal range of motion, no edema Neurologic/Psych: no motor/sensory deficits, awake, alert, oriented x 3 Results Pertinent Lab Results: Laboratory Tests 01/20 01/20 0850 0730 Chemistry Sodium (137 - 145 mmol/L) 137 Potassium (3.5 - 5.1 mmol/L) 4.1 Chloride (98 - 107 mmol/L) 102 Carbon Dioxide (22 - 30 mmol/L) 26 Anion Gap (5 - 16) 9 BUN (9 - 20 mg/dL) 11 Creatinine (0.7 - 1.2 mg/dL) 0.8 Estimated GFR (>60 ml/min) > 60 BUN/Creatinine Ratio (7 - 25 %) 13.8 Lactic Acid (0.7 - 2.1 mmol/L) 0.7 Total Bilirubin (0.2 - 1.3 mg/dL) 1.0 Direct Bilirubin (< 0.4 mg/dL) 0.4 AST (17 - 59 U/L) 14 L ALT (21 - 72 U/L) 27 Alkaline Phosphatase (< 127 U/L) 59 C-React Prot High Sens (1.0 - 3.0 mg/L) 0.3 L Total Protein (6.3 - 8.2 g/dL) 5.8 L Albumin (3.5 - 5.0 g/dL) 3.4 L Lipase (23 - 300 U/L) 58 Hematology CBC w Diff NO MAN DIFF REQ WBC (4.8 - 10.8 /CUMM) 11.6 H RBC (4.70 - 6.10 /CUMM) 4.03 L Hgb (14.0 - 18.0 G/DL) 13.4 L Hct (42 - 52 %) 38.8 L MCV (80.0 - 94.0 FL) 96.2 H MCH (27.0 - 31.0 PG) 33.1 H MCHC (33.0 - 37.0 G/DL) 34.4 RDW (11.5 - 14.5 %) 12.3 Plt Count (130 - 400 /CUMM) 335 MPV (7.4 - 10.4 FL) 7.6 Gran % (42.2 - 75.2 %) 86.7 H Lymphocytes % (20.5 - 51.1 %) 9.6 L Monocytes % (1.7 - 9.3 %) 3.4 Eosinophils % (0 - 5 %) 0 Basophils % (0.0 - 2.0 %) 0.3 Absolute Granulocytes (1.4 - 6.5 /CUMM) 10.1 H Absolute Lymphocytes (1.2 - 3.4 /CUMM) 1.1 L Absolute Monocytes (0.10 - 0.60 /CUMM) 0.4 Absolute Eosinophils (0.0 - 0.7 /CUMM) 0 Absolute Basophils (0.0 - 0.2 /CUMM) 0 Toxicology Urine Opiates Screen (>2000 NG/ML) 341.00 Methadone Screen (>300 NG/ML) 78 Barbiturate Screen (>200 NG/ML) < 60 Ur Phencyclidine Scrn (>25 NG/ML) < 6.00 Amphetamines Screen (>1000 NG/ML) < 100 U Benzodiazepines Scrn (>200 NG/ML) < 85 Urine Cocaine Screen (>300 NG/ML) < 50 Urine Cannabis Screen (>50 NG/ML) > 80.00 H Urines Urine Color (YEL,AMB,STR) YEL Urine Clarity (CLEAR) CLEAR Urine pH (5.0 - 8.0) 6.0 Ur Specific [place] (1.001 - 1.035) 1.020 Urine Protein (NEG,<30 MG/DL) NEG Urine Ketones (NEG) 40 H Urine Nitrite (NEG) NEG Urine Bilirubin (NEG) NEG Urine Urobilinogen (0.1 - 1.0 EU/dl) 0.2 Ur Leukocyte Esterase (NEG) NEG Ur Microscopic EXAM NOT REQUIRED Urine Hemoglobin (NEG) NEG Urine Glucose (N MG/DL) NEG 01/20 0208 Chemistry Sodium (137 - 145 mmol/L) 139 Potassium (3.5 - 5.1 mmol/L) 3.9 Chloride (98 - 107 mmol/L) 101 Carbon Dioxide (22 - 30 mmol/L) 23 Anion Gap (5 - 16) 16 BUN (9 - 20 mg/dL) 16 Creatinine (0.7 - 1.2 mg/dL) 0.9 Estimated GFR (>60 ml/min) > 60 BUN/Creatinine Ratio (7 - 25 %) 17.8 Glucose (65 - 99 mg/dL) 137 H Calcium (8.4 - 10.2 mg/dL) 10.0 Total Bilirubin (0.2 - 1.3 mg/dL) 1.2 AST (17 - 59 U/L) 21 ALT (21 - 72 U/L) 33 Alkaline Phosphatase (< 127 U/L) 81 Troponin I (<0.11 ng/ml) < 0.01 Total Protein (6.3 - 8.2 g/dL) 7.0 Albumin (3.5 - 5.0 g/dL) 4.3 Globulin (1.9 - 4.2 gm/dL) 2.7 Albumin/Globulin Ratio (1.1 - 2.2 %) 1.6 Amylase (30 - 110 U/L) 110 Lipase (23 - 300 U/L) 440 H Hematology CBC w Diff MAN DIFF ORDERED WBC (4.8 - 10.8 /CUMM) 20.0 H RBC (4.70 - 6.10 /CUMM) 4.70 Hgb (14.0 - 18.0 G/DL) 15.1 Hct (42 - 52 %) 46.1 MCV (80.0 - 94.0 FL) 98.1 H MCH (27.0 - 31.0 PG) 32.1 H MCHC (33.0 - 37.0 G/DL) 32.8 L RDW (11.5 - 14.5 %) 12.6 Plt Count (130 - 400 /CUMM) 412 H MPV (7.4 - 10.4 FL) 7.6 Gran % (42.2 - 75.2 %) 83.4 H Lymphocytes % (20.5 - 51.1 %) 10.6 L Monocytes % (1.7 - 9.3 %) 4.9 Eosinophils % (0 - 5 %) 0.7 Basophils % (0.0 - 2.0 %) 0.4 Absolute Granulocytes (1.4 - 6.5 /CUMM) 16.7 H Segmented Neutrophils (42.2 - 75.2 %) 84 H Band Neutrophils (0.0 - 5.0 %) 1 Absolute Lymphocytes (1.2 - 3.4 /CUMM) 2.1 Lymphocytes (20.5 - 51.1 %) 11 L Monocytes (1.7 - 9.3 %) 4 Absolute Monocytes (0.10 - 0.60 /CUMM) 1.0 H Absolute Eosinophils (0.0 - 0.7 /CUMM) 0.1 Absolute Basophils (0.0 - 0.2 /CUMM) 0.1 Platelet Estimate (ADEQUATE) INCREASED Hypochromic-Microcytic 1+ Ovalocytes FEW Stomatocytes FEW Other Body Source Fld Total RBCs Counted (%) 100 Imaging/Other Studies: SERVICE DATE: 01/19/18-1037 EXAM TYPE: CAT - CT ABD & PELVIS W/O IV CONTRAS EXAMINATION: CT ABDOMEN AND PELVIS WITHOUT CONTRAST CLINICAL INFORMATION: Renal colic. Left flank pain. COMPARISON: None TECHNIQUE: Multidetector volumetric imaging was performed from the superior aspect of the liver through the pubic symphysis. Sagittal and coronal reformatted images were obtained on the technologist's workstation. DLP: 275.80 mGy-cm FINDINGS: LUNG BASES: The visualized lung bases are unremarkable. LIVER, GALLBLADDER, AND BILIARY TREE: The liver is normal in size, shape, and attenuation. No focal hepatic lesion or biliary ductal dilatation is present. The gallbladder is unremarkable with no evidence of radiopaque gallstones, gallbladder wall thickening, or obvious pericholecystic inflammatory changes. PANCREAS: Unremarkable. SPLEEN: Unremarkable. ADRENAL GLANDS: Unremarkable. KIDNEYS AND URETERS: The kidneys are normal in size, shape, and attenuation. No hydronephrosis, hydroureter, or calculi seen. No perinephric stranding. BLADDER: Unremarkable. GASTROINTESTINAL TRACT: No acute bowel pathology. Assessment of the stomach and bowel loops is limited due to incomplete distention. Nonobstructive bowel gas pattern. Fatty structure noted at the junction of second and third portion of duodenum likely represents a lipoma (series 2 image 38) ABDOMINAL WALL: No significant hernia is appreciated. LYMPH NODES: Normal. VASCULAR: Unremarkable. PELVIC VISCERA: Unremarkable. OSSEOUS STRUCTURES: Degenerative changes L5-S1 level. No acute or suspicious osseous abnormality. IMPRESSION: 1. No evidence of renal stones or obstructive uropathy. 2. No acute bowel pathology. 3. 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 4. Degenerative changes L5-S1 level. Assessment/Plan Assessment/Recommendations: Assessment: Mr. Acuña is a 52 year old male with chronic back pain who presents with acute onset of LUQ abdominal pain radiating to his back associated with hematemesis of uncertain etiology. He does have ibuprofen listed on his med list so it is possible his symptoms may be from PUD albeit he doesn't currently admit to taking it. He had a negative ct scan and unremarkable blood work and he doesn't really give a reliable history of pain on eating so I am not certain that his symptoms are from his gi tract, but considering the hematemesis I will arrange for a diagnostic EGD to further evaluate that symptom along with his pain. While he reports hematemesis he is without melena and his hgb is stable so I don't feel he is having an active upper GI bleed. Other then PUD it is also possible he may have a MW tear or erosive esophagitis. Recommendations: 1. Keep NPO for a diagnostic EGD to be done later today. 2. PO PPI 3. Avoid nsaids for now 4. Analgesia as needed I will continue to follow this patient and make further recommendations based on his clinical course and the resutls of the EGD to be done later today. Problem List: 1. Nausea and vomiting 2. Acute left flank pain Copies To: [place] VILCHIS,Vamsi Stallworth. Consult Acknowledgment - Thank you for your consult request.
--- NOTE | 2018-01-20 12:59 | Proc Note Endoscopy ---
Endoscopy Procedure Medical History: unchanged (see meditech consult) Mental Status: alert/oriented Heart/Lung Eval Prior to Sedation: within normal limits Candidate for Sedation? Yes Procedure Date: 01/20/18 Procedure Type: EGD w/biopsy Dining Car Server: Nakul Felix MD ASA Classification: II Indications: Hematemesis, abdominal pain. Instrument: diagnostic gastroscope Meds Received: MAC Patient's Tolerance: good Complications: none Extent Reached: second part of duodenum Procedure: After getting written informed consent the patient was placed in the left lateral decubitus position with pulse oximetry, cardiac monitoring, and supplemental oxygen given. A bite block was inserted and IV sedation was given until the desired effect was achieved. A high definition upper Olympus endoscope was then inserted into the mouth and advanced to the second portion of the duodenum with little difficulty. Retroflexed views and photodocumentation was obtained. Findings: Esophagus: The esophageal mucosa was grossly normal in appearance and there was a normal-appearing Z line at 42 cm from incisors. There were no Katarzyna-Heller tears, erosions, or ulcers appreciated. Stomach: There is a moderate amount of leftover bile in the body and fundus of the stomach, but there was no leftover solid food and the pylorus was patent and easily traversable by the upper endoscope. Distention was normal, but peristalsis did appear decreased. The gastric mucosa was normal without any ulcers, erosions, or masses appreciated. Retroflexed views revealed a small hiatal hernia. Random biopsies were obtained from the antrum body of stomach with cold biopsy forceps and were sent to pathology for further evaluation. Duodenum: The duodenal bulb was moderately erythematous and there were several superficial ulcers with an overlying exudate that was not able to be completely washed away through the scope. The duodenal sweep and folds are grossly normal in appearance Impression: 1. Duodenitis with superficial ulcerations. 2. Suggestion of gastroparesis potentially secondary to narcotics status post gastric biopsies. 3. Small hiatal hernia. 4. No active bleeding appreciated. Recommendations: 1. Would place patient on oral PPI twice a day. 2. Would check a fasting serum gastrin preferably before the PPI is started. 3. He should avoid NSAIDs. 4. He should follow an antireflux regimen. 5. He should follow up the pathology results with me as an outpatient. 6. Administer anti-antiemetics and analgesia as needed. 7. Advance diet as tolerated. 8. He should minimize use of narcotics. CC: [place] VILCHIS,Vamsi Blanchard
[2018-01-20 14:20] VITALS: BP 170/110
--- NOTE | 2018-01-20 14:58 | CT SCAN REPORT ---
EXAMINATION: CT ABDOMEN AND PELVIS WITH CONTRAST CLINICAL INFORMATION: Left upper quadrant and right upper quadrant pain. Hematemesis COMPARISON: Noncontrast CT scan 01/19/2018. Noncontrast chest CT 01/15/2016 TECHNIQUE: Multidetector volumetric imaging was performed of the abdomen and pelvis following IV administration of 95 mL of Optiray 320 intravenous contrast. Sagittal and coronal reformatted images were obtained on the technologist's workstation. DLP: 316 mGy-cm FINDINGS: LUNG BASES: The visualized lung bases are unremarkable. LIVER, GALLBLADDER, AND BILIARY TREE: The liver is normal in size, shape, and attenuation. No focal hepatic lesion or biliary ductal dilatation is present. The gallbladder is unremarkable with no evidence of radiopaque gallstones, gallbladder wall thickening, or obvious pericholecystic inflammatory changes. PANCREAS: Unremarkable. SPLEEN: Unremarkable. ADRENAL GLANDS: Unremarkable. KIDNEYS AND URETERS: Subcentimeter hypoenhancing lesion in the anterior cortex of lower pole the right kidney is too small to definitively characterize but most likely represents a simple cyst. The kidneys are normal in size, shape, and attenuation. No hydronephrosis, hydroureter, or calculi seen. No perinephric stranding. BLADDER: Unremarkable. GASTROINTESTINAL TRACT: There is layering hyperdensity in the lumen of the stomach. Intraluminal contrast from GI bleeding can have this appearance. Again seen is a fat density lesion in the duodenum, image 40, consistent with a lipoma. Stomach and small bowel are nondilated. Normal appendix. Scattered colonic diverticulosis. There is a suggestion of wall thickening of the right colon, best seen on coronal images, for example coronal image 38. There may be wall thickening of the transverse colon as well. None of the colon is well distended so these findings may be in part artifactual due to underdistention. ABDOMINAL WALL: No significant hernia is appreciated. LYMPH NODES: Normal. VASCULAR: Normal caliber abdominal aorta. PELVIC VISCERA: The prostate and seminal vesicles are unremarkable. OSSEOUS STRUCTURES: No acute osseous abnormality. Moderate to severe degenerative disc disease at L5-S1. IMPRESSION: Although it may be attributable to underdistention, there is apparent wall thickening of the right colon and to a lesser degree the transverse colon. An infectious, inflammatory, or less likely ischemic colitis could have this appearance. There is layering hyperdensity in the lumen of the stomach. Active GI bleeding into the lumen of the stomach could give this appearance. Alternatively, this could represent ingested material.
[2018-01-20 17:25] VITALS: BP 160/100
[2018-01-20 21:48] VITALS: BP 140/86
[2018-01-21 06:33] VITALS: BP 138/96
[2018-01-21 08:08] LABS: ABSOLUTE BASOPHIL COUNT 0 /CUMM (0.0-0.2); ABSOLUTE EOSINOPHIL COUNT 0 /CUMM (0.0-0.7); ABSOLUTE GRANULOCYTE CT 8.8 /CUMM (1.4-6.5); ABSOLUTE LYMPH COUNT 2.6 /CUMM (1.2-3.4); ABSOLUTE MONOCYTE COUNT 0.9 /CUMM (0.10-0.60); BASOPHIL % 0.4 % (0.0-2.0); EOSINOPHIL % 0.1 % (0-5); MEAN CORPUSCULAR HGB CONC 33.8 G/DL (33.0-37.0); MEAN CORPUSCULAR VOLUME 97.8 FL (80.0-94.0); MEAN PLATELET VOLUME 7.5 FL (7.4-10.4); PLATELET COUNT 351 /CUMM (130-400); RBC DISTRIBUTION WIDTH 12.2 % (11.5-14.5); RED BLOOD CELL CT 4.19 /CUMM (4.70-6.10); WHITE BLOOD CELL COUNT 12.4 /CUMM (4.8-10.8)
--- NOTE | 2018-01-21 08:52 | PN-Observation ---
Observation Note Observation Note _ I have personally examined LYNN VILLAFANA. him disposition is uncertain at this time. Before a determination can be made, he requires continued observation for the following reasons etiology of flank and abdominal pain is currently unclear and still needs to be worked up. His diet also needs to be advanced as tolerated. He'll need to be ruled out for any acute colitis prior to discharge. Assessment/Plan Medical Assessment: Mr Villafana is a 52-year-old male with a PMH significant for chronic back pain, chronic lung disease who presented with intractable L back and L flank pain with associated nausea and vomiting, this was initially resolved after receiving demerol in the ED pain. He was discharged home but returned with persistent pain. He is also having dark red/coffee-ground emesis secondary to multiple episodes of retching. He has no associated urinary symptoms. Vital signs on admission: T 97.7, P 87, RR 22, BP 169/6, pulse ox 100% on room air Labs significant for: WBC 20, bands 1, lipase 440 Problem list #Intractable left back and flank pain #Hematemesis #Nausea and vomiting #Leukocytosis #Hypertension Plan -Continue in observation on the general medicine floor -Follow-up urine toxicology -Pain control with by mouth Dilaudid/Toradol CT WRAPPER LAYER was reviewed showing no claim history of narcotics -Follow-up urinalysis for microscopic hematuria, discussed the CT abdomen and pelvis with litigation manager radiologist at [facility] Dr. Talavera, who confirmed that there is no nephrolithiasis seen. -Repeat CT abdomen and Pelvis with IV contrast. -Follow-up blood cultures -Low suspicion for pancreatitis given presentation, elevated lipase may be secondary to repeated episodes of emesis -IV Protonix--> may transition to PO when Able -Elevated WBC likely reactive, as afebrile. Will monitor CBC in AM. -Control nausea with IV Zofran and Phenergan -Continue home duloxetine -Amlodipine 5 mg PO. Diet: Nothing by mouth, for now, can advance as tolerated. DVT prophylaxis: Lovenox, Alps CODE STATUS: Full code Problem List: 1. Leukocytosis 2. Upper abdominal pain, unspecified 3. Acute left flank pain Subjective Follow-up For: Abdominal Pain Subjective: Mr. Villafana was seen and examined this morning. Resting comfortably in bed. at bedside. Patient states he had an uneventful night and was able to get some rest. He is currently tolerating by mouth intake well and requests that his diet be advanced. He is currently pain-free. He denies any fever, chills, nausea, vomiting. Review of Systems Constitutional: Reports: see HPI. Objective Last 24 Hrs of Vital Signs/I&O Vital Signs Date Time Temp Pulse Resp B/P B/P Pulse O2 O2 Flow FiO2 Mean Ox Delivery Rate 01/21 1200 99.2 80 20 142/96 98 Room Air 01/21 1045 98.1 93 20 138/96 01/21 0633 98.1 93 20 138/96 97 01/20 2148 98.3 80 20 140/86 96 01/20 1725 88 160/100 01/20 1637 80 168/100 Intake & Output 01/21 1600 01/21 0800 01/21 0000 Intake Total 400 600 Output Total 200 Balance 400 400 Intake, Oral 400 600 Output, Urine 200 Physical Exam General Appearance: Alert, Oriented X3, Cooperative Skin: No Rashes Skin Temp/Moisture Exam: Warm/Dry Cardiovascular: Regular Rate, Normal S1, Normal S2, No Murmurs Lungs: Clear to Auscultation, Normal Air Movement Abdomen: Normal Bowel Sounds, Soft, Mild Epigastric Tnderness, Espinal sign negative. Neurological: Normal Gait, Normal Speech, Strength at 5/5 X4 Ext Extremities: No Clubbing, No Cyanosis, No Edema Vascular: Normal Pulses Current Medications: Current Medications Sig/Vamshi Start time Last Medication Dose Route Stop Time Status Admin Acetaminophen 650 MG Q4P PRN 01/20 0400 AC PO Amlodipine Besylate 5 MG DAILY 01/21 1000 AC 01/21 PO 1045 Duloxetine HCl 60 MG DAILY 01/20 1000 AC 01/21 PO 0828 Hydromorphone HCl 0.6 MG ONCE ONE 01/20 1745 DC 01/20 IV 01/20 1746 1757 Hydromorphone HCl 2 MG Q6P PRN 01/20 0415 AC 01/20 PO 0507 Ketorolac 30 MG .STK-MED ONE 01/21 0611 DC Tromethamine IM 01/21 0612 Ketorolac 30 MG Q6-PRN PRN 01/20 0400 AC 01/21 Tromethamine IV 0613 Morphine Sulfate 2 MG Q6P PRN 01/21 1145 CAN IV Nitroglycerin 0.4 MG ONCE ONE 01/21 1130 DC SL 01/21 1131 Omeprazole 20 MG BID 01/21 1000 AC 01/21 PO 0828 Omeprazole 20 MG BID 01/20 2200 DC PO Ondansetron HCl 4 MG Q6P PRN 01/20 0400 AC IV Pantoprazole Sodium 40 MG ONCE ONE 01/20 1745 DC 01/20 IV 01/20 1746 1756 Pantoprazole Sodium 40 MG DAILY 01/20 0400 UT 01/20 IV 0407 Patient Medication 1 ED ONE ONE 01/21 1100 UT Teaching ED 01/21 1101 Patient Medication 1 ED ONE ONE 01/20 1630 UT Teaching ED 01/20 1631 Last 24 Hrs of Labs/Mics: Laboratory Tests 01/21/18 1145: Anion Gap 11, Estimated GFR > 60, BUN/Creatinine Ratio 13.3, Troponin I < 0.01, CBC w Diff MAN DIFF ORDERED, RBC 4.38 L, MCV 96.2 H, MCH 32.9 H, MCHC 34.2, RDW 12.3, MPV 7.4, Gran % 62.4, Lymphocytes % 28.8, Monocytes % 8.2, Eosinophils % 0.2, Basophils % 0.4, Absolute Granulocytes 7.6 H, Absolute Lymphocytes 3.5 H, Absolute Monocytes 1.0 H, Absolute Eosinophils 0, Absolute Basophils 0.1, Platelet Estimate VERIFIED BY SMEAR, Normocytic RBCs VERIFIED, Normochromic RBCs VERIFIED 01/21/18 1126: Troponin I Cancelled 01/21/18 0722: CBC w Diff NO MAN DIFF REQ, RBC 4.19 L, MCV 97.8 H, MCH 33.0 H, MCHC 33.8, RDW 12.2, MPV 7.5, Gran % 71.0, Lymphocytes % 20.9, Monocytes % 7.6, Eosinophils % 0.1, Basophils % 0.4, Absolute Granulocytes 8.8 H, Absolute Lymphocytes 2.6, Absolute Monocytes 0.9 H, Absolute Eosinophils 0, Absolute Basophils 0 01/20/18 1646: Gastrin Pending
--- NOTE | 2018-01-21 09:19 | Patient Discharge Instructions ---
Discharge Instructions General Discharge Information You were seen/treated for: Abdominal Pain Hypertension Special Instructions: Please follow up with your PCP in 3-5 days. Please follow up with GI for a follow up of results from your endoscopy and to be evaluated for a colonoscopy. Please follow up with the stiff leg derrick operator in seven to ten days. You will require an Echocardiogram and potentially a stress test. Diet Recommended Diet: Heart Healthy Activity Activity Self Limited: No (As Tolerated) Acute Coronary Syndrome Inclusion Criteria At DC or during hospital stay patient has or had the following: ACS DIAGNOSIS No Discharge Core Measures Meds if any: Prescribed or Continued at Discharge Meds if any: NOT Prescribed or Continued at Discharge Congestive Heart Failure Inclusion Criteria At DC or during hospital stay patient has or had the following: CHF DIAGNOSIS No Discharge Core Measures Meds if any: Prescribed or Continued at Discharge Meds if any: NOT Prescribed or Continued at Discharge Cerebrovascular accident Inclusion Criteria At DC or during hospital stay patient has or had the following: CVA/TIA Diagnosis No Discharge Core Measures Meds if any: Prescribed or Continued at Discharge Meds if any: NOT Prescribed or Continued at Discharge Venous thromboembolism Inclusion Criteria VTE Diagnosis No VTE Type NONE VTE Confirmed by (Test) NONE Discharge Core Measures - Per Current guidelines, there needs to be overlap - treatment for the first 5 days of Warfarin therapy. - If discharged on Warfarin prior to 5 days of - overlap therapy, the patient will need to be - assessed for post discharge needs including - *Post discharge parental anticoagulation - *Warfarin and/or parental anticoagulation education - *Follow up date to check INR post discharge At least 5 days overlap therapy as Inpatient No Meds if any: Prescribed or Continued at Discharge Note: Overlap Therapy is Warfarin and Anticoagulant Meds if any: NOT Prescribed or Continued at Discharge
[2018-01-21] MEDS ORDERED: OMEPRAZOLE20 M2 PO (09:22)
[2018-01-21] MEDS ORDERED: NORVASC5 M1 PO (10:05)
[2018-01-21 12:00] VITALS: BP 142/96
[2018-01-21 12:01] LABS: ABSOLUTE BASOPHIL COUNT 0.1 /CUMM (0.0-0.2); ABSOLUTE EOSINOPHIL COUNT 0 /CUMM (0.0-0.7); ABSOLUTE GRANULOCYTE CT 7.6 /CUMM (1.4-6.5); ABSOLUTE LYMPH COUNT 3.5 /CUMM (1.2-3.4); BASOPHIL % 0.4 % (0.0-2.0); EOSINOPHIL % 0.2 % (0-5); GRANULOCYTE % 62.4 % (42.2-75.2); HEMATOCRIT 42.1 % (42-52); MEAN CORPUSCULAR HGB 32.9 PG (27.0-31.0); MEAN CORPUSCULAR HGB CONC 34.2 G/DL (33.0-37.0); MEAN CORPUSCULAR VOLUME 96.2 FL (80.0-94.0); MEAN PLATELET VOLUME 7.4 FL (7.4-10.4); PLATELET COUNT 387 /CUMM (130-400); RBC DISTRIBUTION WIDTH 12.3 % (11.5-14.5); RED BLOOD CELL CT 4.38 /CUMM (4.70-6.10); WHITE BLOOD CELL COUNT 12.2 /CUMM (4.8-10.8)
--- NOTE | 2018-01-21 12:11 | Acceptance Note - Resident/Int ---
See Addendum Subjective Background: (see rapid response/event note from today) -chest pain -rt sided headache (acute, new) and left upper extremity partial numbness, tingling and weakness. Review of Systems Constitutional: Reports: see HPI (left upper extremity), weakness. EENTM: Reports: no symptoms. Cardiovascular: Reports: chest pain. Respiratory: Reports: no symptoms. Gastrointestinal: Reports: no symptoms. Genitourinary: Reports: no symptoms. Musculoskeletal: Reports: see HPI. Skin: Reports: no symptoms. Neurological/Psychological: Reports: headache (right sided). Hematologic/Endocrine: Reports: no symptoms. Objective Last 24 Hrs of Vital Signs/I&O Vital Signs Date Time Temp Pulse Resp B/P B/P Pulse O2 O2 Flow FiO2 Mean Ox Delivery Rate 01/21 1045 98.1 93 20 138/96 01/21 0633 98.1 93 20 138/96 97 01/20 2148 98.3 80 20 140/86 96 01/20 1725 88 160/100 01/20 1637 80 168/100 01/20 1420 98.8 67 18 170/110 99 Room Air Intake & Output 01/21 1600 01/21 0800 01/21 0000 Intake Total 400 600 Output Total 200 Balance 400 400 Intake, Oral 400 600 Output, Urine 200 Physical Exam General Appearance: Alert, Oriented X3, Cooperative, Mild Distress, anxious, no specific posturing Skin: No Rashes, No Breakdown, No Significant Lesion Skin Temp/Moisture Exam: Cool/Dry Sepsis Skin Exam (color): Normal for Ethnicity HEENT: Atraumatic, PERRLA, EOMI, Mucous Membr. moist/pink, no gaze deviation Neck: Supple, No JVD Lymphatic: Cervical nl Cardiovascular: Normal S1, Normal S2, tachycardia to 100s Lungs: Clear to Auscultation, Normal Air Movement Abdomen: Normal Bowel Sounds, Soft, No Tenderness Neurological: Normal Speech Extremities: No Clubbing, No Cyanosis, No Edema, Normal Pulses, No Tenderness/ Swelling Vascular: Normal Pulses, Pulses Symmetrical Sepsis Peripheral Pulse Location: Radial Sepsis Peripheral Pulse Exam: Normal Sepsis Cap Refill Exam: <2 Sec Other Physical Findings: NIHSS 1 (partial facial asymmetry), not sure if this is chronic. Current Medications: Current Medications Sig/Vamshi Start time Last Medication Dose Route Stop Time Status Admin Acetaminophen 650 MG Q4P PRN 01/20 0400 AC PO Amlodipine Besylate 5 MG DAILY 01/21 1000 AC 01/21 PO 1045 Amlodipine Besylate 5 MG ONCE ONE 01/20 1430 DC 01/20 PO 01/20 1431 1637 Chlorhexidine 1 GM .STK-MED ONE 01/20 1352 DC Gluconate TOP 01/20 1353 Dextrose/Sodium 1,000 ML Q10H 01/20 0945 DC 01/20 Chloride IV 1001 Duloxetine HCl 60 MG DAILY 01/20 1000 AC 01/21 PO 0828 Hydralazine HCl 10 MG ONCE ONE 01/20 1430 CAN PO 01/20 1431 Hydromorphone HCl 0.6 MG ONCE ONE 01/20 1745 DC 01/20 IV 01/20 1746 1757 Hydromorphone HCl 2 MG Q6P PRN 01/20 0415 AC 01/20 PO 0507 Ketorolac 30 MG Q6-PRN PRN 01/20 0400 AC 01/21 Tromethamine IV 0613 Morphine Sulfate 2 MG Q6P PRN 01/21 1145 CAN IV Nitroglycerin 0.4 MG ONCE ONE 01/21 1130 DC SL 01/21 1131 Omeprazole 20 MG BID 01/21 1000 AC 01/21 PO 0828 Omeprazole 20 MG BID 01/20 2200 DC PO Ondansetron HCl 4 MG Q6P PRN 01/20 0400 AC IV Pantoprazole Sodium 40 MG ONCE ONE 01/20 1745 DC 01/20 IV 01/20 1746 1756 Pantoprazole Sodium 40 MG DAILY 01/20 0400 DC 01/20 IV 0407 Patient Medication 1 ED ONE ONE 01/21 1100 DE Teaching ED 01/21 1101 Patient Medication 1 ED ONE ONE 01/20 1630 DE Teaching ED 01/20 1631 Last 24 Hrs of Lab/Adán Results Last 24 Hrs of Labs/Mics: Laboratory Tests 01/21/18 1145: Anion Gap 11, Estimated GFR > 60, BUN/Creatinine Ratio 13.3, Troponin I < 0.01, CBC w Diff MAN DIFF ORDERED, RBC 4.38 L, MCV 96.2 H, MCH 32.9 H, MCHC 34.2, RDW 12.3, MPV 7.4, Gran % 62.4, Lymphocytes % 28.8, Monocytes % 8.2, Eosinophils % 0.2, Basophils % 0.4, Absolute Granulocytes 7.6 H, Absolute Lymphocytes 3.5 H, Absolute Monocytes 1.0 H, Absolute Eosinophils 0, Absolute Basophils 0.1, Platelet Estimate VERIFIED BY SMEAR, Normocytic RBCs VERIFIED, Normochromic RBCs VERIFIED 01/21/18 1126: Troponin I Cancelled 01/21/18 0722: CBC w Diff NO MAN DIFF REQ, RBC 4.19 L, MCV 97.8 H, MCH 33.0 H, MCHC 33.8, RDW 12.2, MPV 7.5, Gran % 71.0, Lymphocytes % 20.9, Monocytes % 7.6, Eosinophils % 0.1, Basophils % 0.4, Absolute Granulocytes 8.8 H, Absolute Lymphocytes 2.6, Absolute Monocytes 0.9 H, Absolute Eosinophils 0, Absolute Basophils 0 01/20/18 1646: Gastrin Pending Assessment/Plan Assessment: Mr Acuña is a 52 yo M with pmh of chronic back pain, lyme disease, ? chronic lung disease not on O2 or steroid, who presented with Left flank/abdomen pain, nausea, vomiting twice in the ED and got admitted in [facility] for abd pain under investigation. He was found to have coffee ground/dark brown vomitus and underwent UGI endoscopy which did not show acute GI bleeding (other findings noted elsewhere). He also had a CT abdomen which showed thickned bowel wall, for which GI said there is no suspicion about ischemic bowel at this time, and he needs an out patient colonoscopy soon which he is due anyway. This morning, he complained about central chest pain 10/10 with no EKG changes, and troponin pending. He was transferred to the ICU as a telemetry floor hold patient. About ten minutes after his arrival, he complained about right sided headache, right sided neck tingling and left upper extremity tingling, partial numbness, and weakness. On my assessment by NIH stroke scale, his score was one for partial facial asymmetery of the head, not sure if this was a new finding. Since he was assumend to have GI bleeding as a provisional diagnosis and aspirin was contraindicated, so with new onset headache, and left sided findings/ complaints, we ordered MRI of head to explore causes of headache and to rule out any neurological structural abnormalities. Resident Dr Franki Friend came in to discuss the case with us in the ICU as the patient is physically here, but is technically a telemetry floor hold patient so will be following himself, alsong with Dr Ricky Colorado as the attending. Dr Colorado will update the patient and the family member later as well. UPDATE: Received the MRI brain results, which is normal and the patient as well as the family member () explained about the normal result, cardiology consult pending, and ICU location as a telemetry floor hold. Problem List: 1. Nausea and vomiting 2. Leukocytosis 3. Upper abdominal pain, unspecified Pain Ratin Pain Location: headache initially, later none without extra medications Pain Goal: Pain 4 or less Pain Plan: prn acetaminophen Tomorrow's Labs & Rationales: per the primary team
--- NOTE | 2018-01-21 12:58 | RADIOLOGY REPORT ---
EXAMINATION: XR PORTABLE CHEST CLINICAL INFORMATION: Chest pain and chest discomfort. COMPARISON: Chest x-ray of 12/29/2015. Chest CT of 01/15/2016. TECHNIQUE: Portable frontal view of the chest was obtained. FINDINGS: Cardiomediastinal silhouette is stable and normal. The lungs are symmetrically well expanded and clear. No pleural effusions, or pneumothorax. Regional skeleton is intact. Multiple cardiac leads and wires overlie the chest. IMPRESSION: No acute pulmonary process.
--- NOTE | 2018-01-21 13:24 | MRI REPORT ---
EXAMINATION: MR BRAIN WITHOUT CONTRAST CLINICAL INFORMATION: 52-year-old man with new onset of right-sided headache and left upper extremity weakness. COMPARISON: None TECHNIQUE: MRI of the brain without contrast was obtained using routine sequences. FINDINGS: No focal reduced diffusion is seen to suggest acute or subacute cerebral ischemia. No intracranial mass, intracerebral edema, intra-axial blood products, midline shift, or extra-axial collection is visualized. The ventricles and sulcal spaces appear normal. Normal arterial and venous vascular flow voids are present. The paranasal sinuses are well aerated. IMPRESSION: Normal MR appearance of the brain. No imaging evidence of acute cerebral ischemia or hemorrhage.
--- NOTE | 2018-01-21 14:06 | Cons- Cardiology ---
General Information and HPI Consulting Request Date of Consult: 01/21/18 Requested By: Ricky Colorado MD Reason for Consult: Chest pain Source of Information: patient, old records Exam Limitations: no limitations History of Present Illness: the patient is a 52-year-old male. His past medical history is significant for back pain, COPD, etc. The patient was admitted to the hospital via the emergency room with back pain and flank pain with nausea and vomiting. An abdominal CT scan showed no significant abnormalities. He received IV Demerol with pain relief and was sent home. The pain recurred and the patient returned to the emergency room. He had multiple episodes of vomiting and was admitted. He was substernally transferred to the ICU after an episode of protracted chest discomfort which was partially relieved by nitroglycerin. He subsequently developed a significant headache with some neurologic symptoms and was sent for an MRI earlier today. At the moment, the patient remains asymptomatic. He has been seen by Dr. Jaramillo several years ago. At that time, the patient reports that his evaluation, including a stress test was normal. He was told he had mild valvular regurgitation on an echo. He has not followed up with cardiology in the recent past. Allergies/Medications Allergies: Coded Allergies: morphine (Intermediate, HIVES 01/20/18) Home Med List: Amlodipine Besylate (Norvasc) 5 MG TABLET 1 TAB PO DAILY High Blood Pressure . Duloxetine HCl 60 MG CAPSULE.DR 1 CAP PO DAILY Mood Disorder (Reported) Hydrocodone/Acetaminophen (Boles 5-325 Tablet) 5 MG-325 MG TABLET 1-2 TAB PO Q4-6 PRN PRN severe pain Ondansetron (Zofran Odt) 4 MG TAB.RAPDIS 1 TAB SL TID PRN nausea Pantoprazole Sodium 40 MG TABLET.DR 1 TAB PO DAILY GI PPX Current Medications: Current Medications Sig/Vamshi Start time Last Medication Dose Route Stop Time Status Admin Acetaminophen 650 MG Q4P PRN 01/20 0400 AC PO Amlodipine Besylate 5 MG DAILY 01/21 1000 AC 01/21 PO 1045 Amlodipine Besylate 5 MG ONCE ONE 01/20 1430 DC 01/20 PO 01/20 1431 1637 Dextrose/Sodium 1,000 ML Q10H 01/20 0945 DC 01/20 Chloride IV 1001 Duloxetine HCl 60 MG DAILY 01/20 1000 AC 01/21 PO 0828 Hydralazine HCl 10 MG ONCE ONE 01/20 1430 CAN PO 01/20 1431 Hydromorphone HCl 0.6 MG ONCE ONE 01/20 1745 DC 01/20 IV 01/20 1746 1757 Hydromorphone HCl 2 MG Q6P PRN 01/20 0415 AC 01/20 PO 0507 Ketorolac 30 MG Q6-PRN PRN 01/20 0400 AC 01/21 Tromethamine IV 0613 Morphine Sulfate 2 MG Q6P PRN 01/21 1145 CAN IV Nitroglycerin 0.4 MG ONCE ONE 01/21 1130 DC SL 01/21 1131 Omeprazole 20 MG BID 01/21 1000 AC 01/21 PO 0828 Omeprazole 20 MG BID 01/20 2200 DC PO Ondansetron HCl 4 MG Q6P PRN 01/20 0400 AC IV Pantoprazole Sodium 40 MG ONCE ONE 01/20 1745 DC 01/20 IV 01/20 1746 1756 Pantoprazole Sodium 40 MG DAILY 01/20 0400 DC 01/20 IV 0407 Patient Medication 1 ED ONE ONE 01/21 1100 DC Teaching ED 01/21 1101 Patient Medication 1 ED ONE ONE 01/20 1630 DC Teaching ED 01/20 1631 Past History Travel History Traveled to [place] past 21 day No Medical History Blood Transfusion Hx: No Neurological: NONE EENT: NONE Cardiovascular: NONE Respiratory: COPD Gastrointestinal: NONE Hepatic: NONE Renal: NONE Musculoskeletal: chronic back pain Psychiatric: anxiety Endocrine: NONE Blood Disorders: NONE Cancer(s): NONE 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 Other Medical Hx: chronic lyme Surgical History Surgical History: non-contributory Family History Relations & Conditions If Any: Relation not specified for: *No pertinent family history Psychosocial History Primary Language: Belgian Smoking Status: Former Smoker ETOH Use: occasional use Illicit Drug Use: marijuana Exam & Diagnostic Data Vital Signs and I&O Vital Signs Date Time Temp Pulse Resp B/P B/P Pulse O2 O2 Flow FiO2 Mean Ox Delivery Rate 01/21 1200 99.2 80 20 142/96 98 Room Air 01/21 1045 98.1 93 20 138/96 / 0633 98.1 93 20 138/96 97 / 2148 98.3 80 20 140/86 96 / 1725 88 160/100 01/20 1637 80 168/100 01/20 1420 98.8 67 18 170/110 99 Room Air Intake & Output 01/21 0800 01/21 0000 01/20 1600 01/20 0800 01/20 0000 Intake Total 400 633 513 5275 Output Total 200 450 Balance 400 354 506 7751 Intake, IV 425 2150 Intake, Oral 400 600 0 Output, 100 Emesis Output, Urine 200 350 Patient 180 lb Weight Weight Reported by Patient Measurement Method Physical Exam: General Appearance Alert, Oriented X3, Cooperative, no acute distress Skin Temp/Moisture Exam: Warm/Dry Cardiovascular Regular Rate, Normal S1, Normal S2, 1/6 systolic murmur left sternal border Lungs Clear to Auscultationand percussion bilaterally Abdomen grossly normal Neurological Normal /nonfocal Extremities No Clubbing, No Cyanosis, No Edema Vascular Normal Pulses, Pulses Symmetrical Labs/Adán Results: Laboratory Tests 01/21 01/21 1145 1126 Chemistry Sodium (137 - 145 mmol/L) 138 Potassium (3.5 - 5.1 mmol/L) 3.8 Chloride (98 - 107 mmol/L) 101 Carbon Dioxide (22 - 30 mmol/L) 26 Anion Gap (5 - 16) 11 BUN (9 - 20 mg/dL) 12 Creatinine (0.7 - 1.2 mg/dL) 0.9 Estimated GFR (>60 ml/min) > 60 BUN/Creatinine Ratio (7 - 25 %) 13.3 Troponin I (<0.11 ng/ml) < 0.01 Cancelled Hematology CBC w Diff MAN DIFF ORDERED WBC (4.8 - 10.8 /CUMM) 12.2 H RBC (4.70 - 6.10 /CUMM) 4.38 L Hgb (14.0 - 18.0 G/DL) 14.4 Hct (42 - 52 %) 42.1 MCV (80.0 - 94.0 FL) 96.2 H MCH (27.0 - 31.0 PG) 32.9 H MCHC (33.0 - 37.0 G/DL) 34.2 RDW (11.5 - 14.5 %) 12.3 Plt Count (130 - 400 /CUMM) 387 MPV (7.4 - 10.4 FL) 7.4 Gran % (42.2 - 75.2 %) 62.4 Lymphocytes % (20.5 - 51.1 %) 28.8 Monocytes % (1.7 - 9.3 %) 8.2 Eosinophils % (0 - 5 %) 0.2 Basophils % (0.0 - 2.0 %) 0.4 Absolute Granulocytes (1.4 - 6.5 /CUMM) 7.6 H Absolute Lymphocytes (1.2 - 3.4 /CUMM) 3.5 H Absolute Monocytes (0.10 - 0.60 /CUMM) 1.0 H Absolute Eosinophils (0.0 - 0.7 /CUMM) 0 Absolute Basophils (0.0 - 0.2 /CUMM) 0.1 Platelet Estimate (ADEQUATE) VERIFIED BY SMEAR Normocytic RBCs VERIFIED Normochromic RBCs VERIFIED 01/21 01/20 0722 1646 Chemistry Gastrin Pending Hematology CBC w Diff NO MAN DIFF REQ WBC (4.8 - 10.8 /CUMM) 12.4 H RBC (4.70 - 6.10 /CUMM) 4.19 L Hgb (14.0 - 18.0 G/DL) 13.8 L Hct (42 - 52 %) 41.0 L MCV (80.0 - 94.0 FL) 97.8 H MCH (27.0 - 31.0 PG) 33.0 H MCHC (33.0 - 37.0 G/DL) 33.8 RDW (11.5 - 14.5 %) 12.2 Plt Count (130 - 400 /CUMM) 351 MPV (7.4 - 10.4 FL) 7.5 Gran % (42.2 - 75.2 %) 71.0 Lymphocytes % (20.5 - 51.1 %) 20.9 Monocytes % (1.7 - 9.3 %) 7.6 Eosinophils % (0 - 5 %) 0.1 Basophils % (0.0 - 2.0 %) 0.4 Absolute Granulocytes (1.4 - 6.5 /CUMM) 8.8 H Absolute Lymphocytes (1.2 - 3.4 /CUMM) 2.6 Absolute Monocytes (0.10 - 0.60 /CUMM) 0.9 H Absolute Eosinophils (0.0 - 0.7 /CUMM) 0 Absolute Basophils (0.0 - 0.2 /CUMM) 0 01/20 01/20 0850 0730 Chemistry Sodium (137 - 145 mmol/L) 137 Potassium (3.5 - 5.1 mmol/L) 4.1 Chloride (98 - 107 mmol/L) 102 Carbon Dioxide (22 - 30 mmol/L) 26 Anion Gap (5 - 16) 9 BUN (9 - 20 mg/dL) 11 Creatinine (0.7 - 1.2 mg/dL) 0.8 Estimated GFR (>60 ml/min) > 60 BUN/Creatinine Ratio (7 - 25 %) 13.8 Lactic Acid (0.7 - 2.1 mmol/L) 0.7 Total Bilirubin (0.2 - 1.3 mg/dL) 1.0 Direct Bilirubin (< 0.4 mg/dL) 0.4 AST (17 - 59 U/L) 14 L ALT (21 - 72 U/L) 27 Alkaline Phosphatase (< 127 U/L) 59 C-React Prot High Sens (1.0 - 3.0 mg/L) 0.3 L Total Protein (6.3 - 8.2 g/dL) 5.8 L Albumin (3.5 - 5.0 g/dL) 3.4 L Lipase (23 - 300 U/L) 58 Hematology CBC w Diff NO MAN DIFF REQ WBC (4.8 - 10.8 /CUMM) 11.6 H RBC (4.70 - 6.10 /CUMM) 4.03 L Hgb (14.0 - 18.0 G/DL) 13.4 L Hct (42 - 52 %) 38.8 L MCV (80.0 - 94.0 FL) 96.2 H MCH (27.0 - 31.0 PG) 33.1 H MCHC (33.0 - 37.0 G/DL) 34.4 RDW (11.5 - 14.5 %) 12.3 Plt Count (130 - 400 /CUMM) 335 MPV (7.4 - 10.4 FL) 7.6 Gran % (42.2 - 75.2 %) 86.7 H Lymphocytes % (20.5 - 51.1 %) 9.6 L Monocytes % (1.7 - 9.3 %) 3.4 Eosinophils % (0 - 5 %) 0 Basophils % (0.0 - 2.0 %) 0.3 Absolute Granulocytes (1.4 - 6.5 /CUMM) 10.1 H Absolute Lymphocytes (1.2 - 3.4 /CUMM) 1.1 L Absolute Monocytes (0.10 - 0.60 /CUMM) 0.4 Absolute Eosinophils (0.0 - 0.7 /CUMM) 0 Absolute Basophils (0.0 - 0.2 /CUMM) 0 Toxicology Urine Opiates Screen (>2000 NG/ML) 341.00 Methadone Screen (>300 NG/ML) 78 Barbiturate Screen (>200 NG/ML) < 60 Ur Phencyclidine Scrn (>25 NG/ML) < 6.00 Amphetamines Screen (>1000 NG/ML) < 100 U Benzodiazepines Scrn (>200 NG/ML) < 85 Urine Cocaine Screen (>300 NG/ML) < 50 Urine Cannabis Screen (>50 NG/ML) > 80.00 H Urines Urine Color (YEL,AMB,STR) YEL Urine Clarity (CLEAR) CLEAR Urine pH (5.0 - 8.0) 6.0 Ur Specific Moody (1.001 - 1.035) 1.020 Urine Protein (NEG,<30 MG/DL) NEG Urine Ketones (NEG) 40 H Urine Nitrite (NEG) NEG Urine Bilirubin (NEG) NEG Urine Urobilinogen (0.1 - 1.0 EU/dl) 0.2 Ur Leukocyte Esterase (NEG) NEG Ur Microscopic EXAM NOT REQUIRED Urine Hemoglobin (NEG) NEG Urine Glucose (N MG/DL) NEG 01/20 0208 Chemistry Sodium (137 - 145 mmol/L) 139 Potassium (3.5 - 5.1 mmol/L) 3.9 Chloride (98 - 107 mmol/L) 101 Carbon Dioxide (22 - 30 mmol/L) 23 Anion Gap (5 - 16) 16 BUN (9 - 20 mg/dL) 16 Creatinine (0.7 - 1.2 mg/dL) 0.9 Estimated GFR (>60 ml/min) > 60 BUN/Creatinine Ratio (7 - 25 %) 17.8 Glucose (65 - 99 mg/dL) 137 H Calcium (8.4 - 10.2 mg/dL) 10.0 Total Bilirubin (0.2 - 1.3 mg/dL) 1.2 AST (17 - 59 U/L) 21 ALT (21 - 72 U/L) 33 Alkaline Phosphatase (< 127 U/L) 81 Troponin I (<0.11 ng/ml) < 0.01 Total Protein (6.3 - 8.2 g/dL) 7.0 Albumin (3.5 - 5.0 g/dL) 4.3 Globulin (1.9 - 4.2 gm/dL) 2.7 Albumin/Globulin Ratio (1.1 - 2.2 %) 1.6 Amylase (30 - 110 U/L) 110 Lipase (23 - 300 U/L) 440 H Hematology CBC w Diff MAN DIFF ORDERED WBC (4.8 - 10.8 /CUMM) 20.0 H RBC (4.70 - 6.10 /CUMM) 4.70 Hgb (14.0 - 18.0 G/DL) 15.1 Hct (42 - 52 %) 46.1 MCV (80.0 - 94.0 FL) 98.1 H MCH (27.0 - 31.0 PG) 32.1 H MCHC (33.0 - 37.0 G/DL) 32.8 L RDW (11.5 - 14.5 %) 12.6 Plt Count (130 - 400 /CUMM) 412 H MPV (7.4 - 10.4 FL) 7.6 Gran % (42.2 - 75.2 %) 83.4 H Lymphocytes % (20.5 - 51.1 %) 10.6 L Monocytes % (1.7 - 9.3 %) 4.9 Eosinophils % (0 - 5 %) 0.7 Basophils % (0.0 - 2.0 %) 0.4 Absolute Granulocytes (1.4 - 6.5 /CUMM) 16.7 H Segmented Neutrophils (42.2 - 75.2 %) 84 H Band Neutrophils (0.0 - 5.0 %) 1 Absolute Lymphocytes (1.2 - 3.4 /CUMM) 2.1 Lymphocytes (20.5 - 51.1 %) 11 L Monocytes (1.7 - 9.3 %) 4 Absolute Monocytes (0.10 - 0.60 /CUMM) 1.0 H Absolute Eosinophils (0.0 - 0.7 /CUMM) 0.1 Absolute Basophils (0.0 - 0.2 /CUMM) 0.1 Platelet Estimate (ADEQUATE) INCREASED Hypochromic-Microcytic 1+ Ovalocytes FEW Stomatocytes FEW Other Body Source Fld Total RBCs Counted (%) 100 Assessment/Plan Assessment/Plan assessment: 1. Chest pain syndrome-by history, the symptoms seem to be more likely, noncardiac. Possibly GI in nature. Possibly esophageal spasm. Serial troponins are negative. Serial ECGs showed tiny Q waves in 1 and L which were present on admission. No acute changes noted. 2.headache with transient neurologic symptoms-I suspect the headache was related to the nitroglycerin. MRI pending 3. GI symptoms with abnormal endoscopy, esophagitis/gastritis/superficial ulceration/hiatal hernia/possible gastroparesis 4. Abnormal ECG with small Q waves in leads 1 and aVL 5. chronic back pain 6. Anxiety 7. Mild leukocytosis Recommendations: -Monitor on telemetry for 24 hours -Serial troponins thus far negative -ECGs noted -Consider echocardiogram at baseline to assess for wall motion abnormalities -Otherwise, the patient appears stable at the moment for a cardiac standpoint. I suspect the symptoms were GI in nature. Follow-up with cardiology later as outpatient. Consideration for baseline follow-up stress testing at some point as outpatient. Consult Acknowledgment - Thank you for your consult request.
--- NOTE | 2018-01-21 14:38 | PN- Gastroenterology ---
Assessment/Plan GI Assessment/Recommendations: Assessment: Mr. Waggoner is a 52 year old male with chronic back pain who was admitted with abdominal pain, nausea and vomiting who was noted to have duodenitis on his EGD and while this may account for some of his symptoms I feel that most of his pain is musculoskeletal and exacerbated by underlying anxiety. His repeat ct scan did show some bowel wall thickening, but this is most likely secondary to underdistention as he is without any other symptoms of colitis and the thickening wasn't associated with any inflammatory changes (ie. stranding). While he continues to have some discomfort his pain is now more focused in his chest and head. While it may be reasonable to do a diagnostic colonoscopy to further evalute the ct scan findings this should be pursued as an outpatient. Recommendations: 1. Continue po ppi 2. Advance diet as tolerated 3. Follow up pathology results with me as an outpatient 4. Anti-emetics and analgesia as needed 5. Avoid nsiads Will sign off at this time and would ask that GI be reconsulted for any new GI issues that arise while he is an inpatient and would ask that he follow up as an outpatient to arrange for a colonoscopy and to address any other GI symptoms he may have. Subjective Subjective: Pt s/p EGD yesterday showing erosive duodenitis and he also had a repeat ct scan with IV contrast. Began complaining of chest pain and head discomfort for which he has been transferred to telemetery. Continue to have some abdominal pain, but he hasn't had any further vomiting since being admitted Objective Vital Signs and I&Os Vital Signs Date Time Temp Pulse Resp B/P B/P Pulse O2 O2 Flow FiO2 Mean Ox Delivery Rate 01/21 1200 99.2 80 20 142/96 98 Room Air 01/21 1045 98.1 93 20 138/96 01/21 0633 98.1 93 20 138/96 97 / 2148 98.3 80 20 140/86 96 / 1725 88 160/100 01/20 1637 80 168/100 Intake & Output 01/21 1600 01/21 0400 01/20 1600 01/20 0400 01/19 1600 01/19 0400 Intake Total 400 287 298 1805 Output Total 200 350 100 Balance 400 064 865 2407 Intake, IV 575 2000 Intake, Oral 400 600 0 Output, 100 Emesis Output, Urine 200 350 Patient 180 lb 180 lb Weight Weight Reported by Patient Measurement Method Physical Exam General Appearance: well developed/nourished, no apparent distress, alert Head: atraumatic, normal appearance Neck: normal inspection, supple Respiratory: normal breath sounds, chest non-tender, no respiratory distress Cardiovascular: regular rate/rhythm Abdomen: normal bowel sounds, soft, tenderness Extremities: normal inspection Skin: intact, normal color, warm/dry Current Medications: Current Medications Sig/Vamshi Start time Last Medication Dose Route Stop Time Status Admin Acetaminophen 650 MG Q4P PRN 01/20 0400 AC PO Amlodipine Besylate 5 MG DAILY 01/21 1000 AC 01/21 PO 1045 Amlodipine Besylate 5 MG ONCE ONE 01/20 1430 DC 04 PO 01/20 1431 1637 Duloxetine HCl 60 MG DAILY 01/20 1000 AC 01/21 PO 0828 Hydromorphone HCl 0.6 MG ONCE ONE 01/20 1745 DC 01/20 IV 01/20 1746 1757 Hydromorphone HCl 2 MG Q6P PRN 01/20 0415 AC 01/20 PO 0507 Ketorolac 30 MG .STK-MED ONE 01/21 0611 DC Tromethamine IM 01/21 0612 Ketorolac 30 MG Q6-PRN PRN 01/20 0400 AC 01/21 Tromethamine IV 0613 Morphine Sulfate 2 MG Q6P PRN 01/21 1145 CAN IV Nitroglycerin 0.4 MG ONCE ONE 01/21 1130 DC SL 01/21 1131 Omeprazole 20 MG BID 01/21 1000 AC 01/21 PO 0828 Omeprazole 20 MG BID 01/20 2200 DC PO Ondansetron HCl 4 MG Q6P PRN 01/20 0400 AC IV Pantoprazole Sodium 40 MG ONCE ONE 01/20 1745 DC 01/20 IV 01/20 1746 1756 Pantoprazole Sodium 40 MG DAILY 01/20 0400 DC 01/20 IV 0407 Patient Medication 1 ED ONE ONE 01/21 1100 GA Teaching ED 01/21 1101 Patient Medication 1 ED ONE ONE 01/20 1630 GA Teaching ED 01/20 1631 Results Pertinent Lab Results: Laboratory Tests 01/21 01/21 1145 1126 Chemistry Sodium (137 - 145 mmol/L) 138 Potassium (3.5 - 5.1 mmol/L) 3.8 Chloride (98 - 107 mmol/L) 101 Carbon Dioxide (22 - 30 mmol/L) 26 Anion Gap (5 - 16) 11 BUN (9 - 20 mg/dL) 12 Creatinine (0.7 - 1.2 mg/dL) 0.9 Estimated GFR (>60 ml/min) > 60 BUN/Creatinine Ratio (7 - 25 %) 13.3 Troponin I (<0.11 ng/ml) < 0.01 Cancelled Hematology CBC w Diff MAN DIFF ORDERED WBC (4.8 - 10.8 /CUMM) 12.2 H RBC (4.70 - 6.10 /CUMM) 4.38 L Hgb (14.0 - 18.0 G/DL) 14.4 Hct (42 - 52 %) 42.1 MCV (80.0 - 94.0 FL) 96.2 H MCH (27.0 - 31.0 PG) 32.9 H MCHC (33.0 - 37.0 G/DL) 34.2 RDW (11.5 - 14.5 %) 12.3 Plt Count (130 - 400 /CUMM) 387 MPV (7.4 - 10.4 FL) 7.4 Gran % (42.2 - 75.2 %) 62.4 Lymphocytes % (20.5 - 51.1 %) 28.8 Monocytes % (1.7 - 9.3 %) 8.2 Eosinophils % (0 - 5 %) 0.2 Basophils % (0.0 - 2.0 %) 0.4 Absolute Granulocytes (1.4 - 6.5 /CUMM) 7.6 H Absolute Lymphocytes (1.2 - 3.4 /CUMM) 3.5 H Absolute Monocytes (0.10 - 0.60 /CUMM) 1.0 H Absolute Eosinophils (0.0 - 0.7 /CUMM) 0 Absolute Basophils (0.0 - 0.2 /CUMM) 0.1 Platelet Estimate (ADEQUATE) VERIFIED BY SMEAR Normocytic RBCs VERIFIED Normochromic RBCs VERIFIED 01/21 01/20 2863 6962 Chemistry Gastrin Pending Hematology CBC w Diff NO MAN DIFF REQ WBC (4.8 - 10.8 /CUMM) 12.4 H RBC (4.70 - 6.10 /CUMM) 4.19 L Hgb (14.0 - 18.0 G/DL) 13.8 L Hct (42 - 52 %) 41.0 L MCV (80.0 - 94.0 FL) 97.8 H MCH (27.0 - 31.0 PG) 33.0 H MCHC (33.0 - 37.0 G/DL) 33.8 RDW (11.5 - 14.5 %) 12.2 Plt Count (130 - 400 /CUMM) 351 MPV (7.4 - 10.4 FL) 7.5 Gran % (42.2 - 75.2 %) 71.0 Lymphocytes % (20.5 - 51.1 %) 20.9 Monocytes % (1.7 - 9.3 %) 7.6 Eosinophils % (0 - 5 %) 0.1 Basophils % (0.0 - 2.0 %) 0.4 Absolute Granulocytes (1.4 - 6.5 /CUMM) 8.8 H Absolute Lymphocytes (1.2 - 3.4 /CUMM) 2.6 Absolute Monocytes (0.10 - 0.60 /CUMM) 0.9 H Absolute Eosinophils (0.0 - 0.7 /CUMM) 0 Absolute Basophils (0.0 - 0.2 /CUMM) 0 04/03 04/03 0850 0730 Chemistry Sodium (137 - 145 mmol/L) 137 Potassium (3.5 - 5.1 mmol/L) 4.1 Chloride (98 - 107 mmol/L) 102 Carbon Dioxide (22 - 30 mmol/L) 26 Anion Gap (5 - 16) 9 BUN (9 - 20 mg/dL) 11 Creatinine (0.7 - 1.2 mg/dL) 0.8 Estimated GFR (>60 ml/min) > 60 BUN/Creatinine Ratio (7 - 25 %) 13.8 Lactic Acid (0.7 - 2.1 mmol/L) 0.7 Total Bilirubin (0.2 - 1.3 mg/dL) 1.0 Direct Bilirubin (< 0.4 mg/dL) 0.4 AST (17 - 59 U/L) 14 L ALT (21 - 72 U/L) 27 Alkaline Phosphatase (< 127 U/L) 59 C-React Prot High Sens (1.0 - 3.0 mg/L) 0.3 L Total Protein (6.3 - 8.2 g/dL) 5.8 L Albumin (3.5 - 5.0 g/dL) 3.4 L Lipase (23 - 300 U/L) 58 Hematology CBC w Diff NO MAN DIFF REQ WBC (4.8 - 10.8 /CUMM) 11.6 H RBC (4.70 - 6.10 /CUMM) 4.03 L Hgb (14.0 - 18.0 G/DL) 13.4 L Hct (42 - 52 %) 38.8 L MCV (80.0 - 94.0 FL) 96.2 H MCH (27.0 - 31.0 PG) 33.1 H MCHC (33.0 - 37.0 G/DL) 34.4 RDW (11.5 - 14.5 %) 12.3 Plt Count (130 - 400 /CUMM) 335 MPV (7.4 - 10.4 FL) 7.6 Gran % (42.2 - 75.2 %) 86.7 H Lymphocytes % (20.5 - 51.1 %) 9.6 L Monocytes % (1.7 - 9.3 %) 3.4 Eosinophils % (0 - 5 %) 0 Basophils % (0.0 - 2.0 %) 0.3 Absolute Granulocytes (1.4 - 6.5 /CUMM) 10.1 H Absolute Lymphocytes (1.2 - 3.4 /CUMM) 1.1 L Absolute Monocytes (0.10 - 0.60 /CUMM) 0.4 Absolute Eosinophils (0.0 - 0.7 /CUMM) 0 Absolute Basophils (0.0 - 0.2 /CUMM) 0 Toxicology Urine Opiates Screen (>2000 NG/ML) 341.00 Methadone Screen (>300 NG/ML) 78 Barbiturate Screen (>200 NG/ML) < 60 Ur Phencyclidine Scrn (>25 NG/ML) < 6.00 Amphetamines Screen (>1000 NG/ML) < 100 U Benzodiazepines Scrn (>200 NG/ML) < 85 Urine Cocaine Screen (>300 NG/ML) < 50 Urine Cannabis Screen (>50 NG/ML) > 80.00 H Urines Urine Color (YEL,AMB,STR) YEL Urine Clarity (CLEAR) CLEAR Urine pH (5.0 - 8.0) 6.0 Ur Specific Rena Lara (1.001 - 1.035) 1.020 Urine Protein (NEG,<30 MG/DL) NEG Urine Ketones (NEG) 40 H Urine Nitrite (NEG) NEG Urine Bilirubin (NEG) NEG Urine Urobilinogen (0.1 - 1.0 EU/dl) 0.2 Ur Leukocyte Esterase (NEG) NEG Ur Microscopic EXAM NOT REQUIRED Urine Hemoglobin (NEG) NEG Urine Glucose (N MG/DL) NEG 01/20 0208 Chemistry Sodium (137 - 145 mmol/L) 139 Potassium (3.5 - 5.1 mmol/L) 3.9 Chloride (98 - 107 mmol/L) 101 Carbon Dioxide (22 - 30 mmol/L) 23 Anion Gap (5 - 16) 16 BUN (9 - 20 mg/dL) 16 Creatinine (0.7 - 1.2 mg/dL) 0.9 Estimated GFR (>60 ml/min) > 60 BUN/Creatinine Ratio (7 - 25 %) 17.8 Glucose (65 - 99 mg/dL) 137 H Calcium (8.4 - 10.2 mg/dL) 10.0 Total Bilirubin (0.2 - 1.3 mg/dL) 1.2 AST (17 - 59 U/L) 21 ALT (21 - 72 U/L) 33 Alkaline Phosphatase (< 127 U/L) 81 Troponin I (<0.11 ng/ml) < 0.01 Total Protein (6.3 - 8.2 g/dL) 7.0 Albumin (3.5 - 5.0 g/dL) 4.3 Globulin (1.9 - 4.2 gm/dL) 2.7 Albumin/Globulin Ratio (1.1 - 2.2 %) 1.6 Amylase (30 - 110 U/L) 110 Lipase (23 - 300 U/L) 440 H Hematology CBC w Diff MAN DIFF ORDERED WBC (4.8 - 10.8 /CUMM) 20.0 H RBC (4.70 - 6.10 /CUMM) 4.70 Hgb (14.0 - 18.0 G/DL) 15.1 Hct (42 - 52 %) 46.1 MCV (80.0 - 94.0 FL) 98.1 H MCH (27.0 - 31.0 PG) 32.1 H MCHC (33.0 - 37.0 G/DL) 32.8 L RDW (11.5 - 14.5 %) 12.6 Plt Count (130 - 400 /CUMM) 412 H MPV (7.4 - 10.4 FL) 7.6 Gran % (42.2 - 75.2 %) 83.4 H Lymphocytes % (20.5 - 51.1 %) 10.6 L Monocytes % (1.7 - 9.3 %) 4.9 Eosinophils % (0 - 5 %) 0.7 Basophils % (0.0 - 2.0 %) 0.4 Absolute Granulocytes (1.4 - 6.5 /CUMM) 16.7 H Segmented Neutrophils (42.2 - 75.2 %) 84 H Band Neutrophils (0.0 - 5.0 %) 1 Absolute Lymphocytes (1.2 - 3.4 /CUMM) 2.1 Lymphocytes (20.5 - 51.1 %) 11 L Monocytes (1.7 - 9.3 %) 4 Absolute Monocytes (0.10 - 0.60 /CUMM) 1.0 H Absolute Eosinophils (0.0 - 0.7 /CUMM) 0.1 Absolute Basophils (0.0 - 0.2 /CUMM) 0.1 Platelet Estimate (ADEQUATE) INCREASED Hypochromic-Microcytic 1+ Ovalocytes FEW Stomatocytes FEW Other Body Source Fld Total RBCs Counted (%) 100 Imaging/Other Studies: SERVICE DATE: 01/20/18- EXAM TYPE: CAT - CT ABD & PELVIS W IV CONTRAST EXAMINATION: CT ABDOMEN AND PELVIS WITH CONTRAST CLINICAL INFORMATION: Left upper quadrant and right upper quadrant pain. Hematemesis COMPARISON: Noncontrast CT scan 01/19/2018. Noncontrast chest CT 01/15/2016 TECHNIQUE: Multidetector volumetric imaging was performed of the abdomen and pelvis following IV administration of 95 mL of Optiray 320 intravenous contrast. Sagittal and coronal reformatted images were obtained on the technologist's workstation. DLP: 316 mGy-cm FINDINGS: LUNG BASES: The visualized lung bases are unremarkable. LIVER, GALLBLADDER, AND BILIARY TREE: The liver is normal in size, shape, and attenuation. No focal hepatic lesion or biliary ductal dilatation is present. The gallbladder is unremarkable with no evidence of radiopaque gallstones, gallbladder wall thickening, or obvious pericholecystic inflammatory changes. PANCREAS: Unremarkable. SPLEEN: Unremarkable. ADRENAL GLANDS: Unremarkable. KIDNEYS AND URETERS: Subcentimeter hypoenhancing lesion in the anterior cortex of lower pole the right kidney is too small to definitively characterize but most likely represents a simple cyst. The kidneys are normal in size, shape, and attenuation. No hydronephrosis, hydroureter, or calculi seen. No perinephric stranding. BLADDER: Unremarkable. GASTROINTESTINAL TRACT: There is layering hyperdensity in the lumen of the stomach. Intraluminal contrast from GI bleeding can have this appearance. Again seen is a fat density lesion in the duodenum, image 40, consistent with a lipoma. Stomach and small bowel are nondilated. Normal appendix. Scattered colonic diverticulosis. There is a suggestion of wall thickening of the right colon, best seen on coronal images, for example coronal image 38. There may be wall thickening of the transverse colon as well. None of the colon is well distended so these findings may be in part artifactual due to underdistention. ABDOMINAL WALL: No significant hernia is appreciated. LYMPH NODES: Normal. VASCULAR: Normal caliber abdominal aorta. PELVIC VISCERA: The prostate and seminal vesicles are unremarkable. OSSEOUS STRUCTURES: No acute osseous abnormality. Moderate to severe degenerative disc disease at L5-S1. IMPRESSION: Although it may be attributable to underdistention, there is apparent wall thickening of the right colon and to a lesser degree the transverse colon. An infectious, inflammatory, or less likely ischemic colitis could have this appearance. There is layering hyperdensity in the lumen of the stomach. Active GI bleeding into the lumen of the stomach could give this appearance. Alternatively, this could represent ingested material.
[2018-01-21 16:00] VITALS: BP 150/100
--- NOTE | 2018-01-21 16:09 | Event Note ---
See Addendum Event Note Event Note: S: Approximately 11:20 AM a rapid response was called owing to the fact that the patient was experiencing chest pain. Pain was rated a 10 out of 10 in severity. Located in the anterior chest wall. Patient states that it was a pressure-like pain described as feeling that "something is sitting on his chest." Concern chest pain caused by ACS. B: Mr Acuña is a 52-year-old male with a PMH significant for chronic back pain, chronic lung disease who presented with intractable L back and L flank pain with associated nausea and vomiting, this was initially resolved after receiving demerol in the ED pain. He was discharged home but returned with persistent pain, he is currently being managed and evaluated for the source of this pain. A/R: Vitals temperature 98.5. Blood pressure 158/80. Heart rate 101. Respirations 20. Blood sugar 78. Saturation 99% on room air. Following administration of nitroglycerin 0.4 mg sublingual the patient did state that his chest pain did get better. Some other differentials for etiology of this pain include: ACS/esophageal spasm /muscular skeletal pain. The following lab tests ordered immediately CBC, BEP, troponin, chest x-ray, EKG. The patient will be transferred to telemetry for closer monitoring. We will also rule him out with serial troponins and EKG. It would be prudent to obtain a cardiology consultation to rule out ACS. Primary team will continue following patient. Attending physician Dr. Ricky Colorado was at bedside.
--- NOTE | 2018-01-21 17:28 | Discharge Summary ---
Visit Information Visit Dates Admission Date: 01/20/18 Discharge Date: 01/22/2018 Hospital Course Course Attending Physician: Ricky Colorado MD Primary Care Physician: [place] VILCHIS,Vamis Blanchard Hospital Course: Mr Acuña is a 52-year-old male with a PMH significant for chronic back pain, chronic lung disease who presented with intractable L back and L flank pain with associated nausea and vomiting, this was initially resolved after receiving demerol in the ED pain. He was discharged home but returned with persistent pain. He also endorsed having dark red/coffee-ground emesis secondary to multiple episodes of retching. He has no associated urinary symptoms. Vital signs on admission: T 97.7, P 87, RR 22, BP 169/6, pulse ox 100% on room air Labs significant for: WBC 20, bands 1, lipase 440 He was initially placed under observation (converted to a full admission on the evening of 01/21/2018) to the [facility] medical service and below is a summary of the care he received under us. Problem list #Intractable left back and flank pain #Chest Pain Syndrome #Hematemesis #Leukocytosis #Hypertension #Headache Initial imaging studies were negative for any acute pathology. On day two of admission we obtained a GI consultation. Owing to hematemesis the patient was taken for an endoscopy. He tolerated this procedure well. Findings from the endoscopy have been included below. Patient was also maintained on IV Protonix and Phenergan for symptomatic relief. It was recommended that the patient should follow-up with GI for evaluation for possible colonoscopy. During the course of admission the patient's blood work was routinely monitored and checked. Patient was also hypertensive since admission. He was started on amlodipine 5 mg by mouth. He tolerated this medication without any competitions. It was recommended that the patient should continue this medication at the time of discharge. Patient was continued on duloxetine. On 01/21/2018 at approximately 11:20 AM a rapid response was called owing to the fact that the patient was experiencing chest pain. Pain was rated at a 10 out of 10 in severity described as pressure-like pain. Stating that "something was sitting on his chest." He did receive significant relief after administration of nitroglycerin. Following the rapid response it was prudent for us to rule out ACS. He was subsequently transferred to telemetry. On an EKG, Small Q waves were noted in leads 1 and aVL. A cardiology consultation was obtained. Serial troponins and EKG revealed no acute pathology. They recommended an echocardiogram and consideration for baseline stress test. Referral for the patient to follow-up as an outpatient with cardiology was given. On 01/22/2008 the patient also had an MRI to rule out any acute pathology owing to some facial numbness and a headache. No further neurological deficits were noted. For DVT prophylaxis was maintained on Lovenox and Alps. Patient was initially kept on nothing by mouth and his diet was advanced accordingly. Patient was a full code over the course of admission. *All imaging studies and procedures from the patient's admission have been included below. Allergies: Coded Allergies: morphine (Intermediate, HIVES 01/20/18) Significant Procedures: Endoscopy Procedure Medical History: unchanged (see meditech consult) Mental Status: alert/oriented Heart/Lung Eval Prior to Sedation: within normal limits Candidate for Sedation? Yes Procedure Date: 01/20/18 Procedure Type: EGD w/biopsy [employer] Administrator: Nakul Felix MD ASA Classification: II Indications: Hematemesis, abdominal pain. Instrument: diagnostic gastroscope Meds Received: MAC Patient's Tolerance: good Complications: none Extent Reached: second part of duodenum Procedure: After getting written informed consent the patient was placed in the left lateral decubitus position with pulse oximetry, cardiac monitoring, and supplemental oxygen given. A bite block was inserted and IV sedation was given until the desired effect was achieved. A high definition upper Olympus endoscope was then inserted into the mouth and advanced to the second portion of the duodenum with little difficulty. Retroflexed views and photodocumentation was obtained. Findings: Esophagus: The esophageal mucosa was grossly normal in appearance and there was a normal-appearing Z line at 42 cm from incisors. There were no Katarzyna-Heller tears, erosions, or ulcers appreciated. Stomach: There is a moderate amount of leftover bile in the body and fundus of the stomach, but there was no leftover solid food and the pylorus was patent and easily traversable by the upper endoscope. Distention was normal, but peristalsis did appear decreased. The gastric mucosa was normal without any ulcers, erosions, or masses appreciated. Retroflexed views revealed a small hiatal hernia. Random biopsies were obtained from the antrum body of stomach with cold biopsy forceps and were sent to pathology for further evaluation. Duodenum: The duodenal bulb was moderately erythematous and there were several superficial ulcers with an overlying exudate that was not able to be completely washed away through the scope. The duodenal sweep and folds are grossly normal in appearance Impression: 1. Duodenitis with superficial ulcerations. 2. Suggestion of gastroparesis potentially secondary to narcotics status post gastric biopsies. 3. Small hiatal hernia. 4. No active bleeding appreciated. Recommendations: 1. Would place patient on oral PPI twice a day. 2. Would check a fasting serum gastrin preferably before the PPI is started. 3. He should avoid NSAIDs. 4. He should follow an antireflux regimen. 5. He should follow up the pathology results with me as an outpatient. 6. Administer anti-antiemetics and analgesia as needed. 7. Advance diet as tolerated. 8. He should minimize use of narcotics. Pertinent Lab Results: SERVICE DATE: 01/20/18- EXAM TYPE: CAT - CT ABD & PELVIS W IV CONTRAST IMPRESSION: Although it may be attributable to underdistention, there is apparent wall thickening of the right colon and to a lesser degree the transverse colon. An infectious, inflammatory, or less likely ischemic colitis could have this appearance. There is layering hyperdensity in the lumen of the stomach. Active GI bleeding into the lumen of the stomach could give this appearance. Alternatively, this could represent ingested material. SERVICE DATE: 01/21/18 EXAM TYPE: RAD - XRY-PORTABLE CHEST XRAY IMPRESSION: No acute pulmonary process. SERVICE DATE: 01/21/18 EXAM TYPE: MRI - MRI-HEAD W/O PRINCESS EXAMINATION: MR BRAIN WITHOUT CONTRAST CLINICAL INFORMATION: 52-year-old man with new onset of right-sided headache and left upper extremity weakness. COMPARISON: None TECHNIQUE: MRI of the brain without contrast was obtained using routine sequences. FINDINGS: No focal reduced diffusion is seen to suggest acute or subacute cerebral ischemia. No intracranial mass, intracerebral edema, intra-axial blood products, midline shift, or extra-axial collection is visualized. The ventricles and sulcal spaces appear normal. Normal arterial and venous vascular flow voids are present. The paranasal sinuses are well aerated. IMPRESSION: Normal MR appearance of the brain. No imaging evidence of acute cerebral ischemia or hemorrhage. DICTATED BY: Noe VILCHIS,Cathy Disposition Summary Disposition Principal Diagnosis: #Intractable left back and flank pain Additional Diagnosis: #Chest Pain Syndrome #Hematemesis #Nausea and vomiting #Leukocytosis #Hypertension #Headache Discharge Disposition: home or self care Discharge Instructions General Discharge Information Code Status: Full Code Patient's Diet: Regular Diet Patient's Activity: As Tolerated Follow-Up Instructions/Appts: Please follow up with your PCP in 3-5 days. Please follow up with GI for a follow up of results from your endoscopy and to be evaluated for a colonoscopy. Please follow up with the japanese tutor in seven to ten days. You will require an Echocardiogram and potentially a stress test. Medications at Discharge Discharge Medications: Stop taking the following medications: Ibuprofen (Ibuprofen) 600 MG TABLET ORAL THREE TIMES DAILY Qty = 30 Continue taking these medications: Duloxetine HCl (Duloxetine HCl) 60 MG CAPSULE.DR 1 Capsule ORAL DAILY Qty = 90 Comments: Last Taken: 01/22/18 Time:0900 Ondansetron (Zofran Odt) 4 MG TAB.RAPDIS 1 Tablet SUBLINGUAL THREE TIMES DAILY as needed for nausea Qty = 15 Hydrocodone/Acetaminophen ([place] 5-325 Tablet) 5 MG-325 MG TABLET 1-2 Tablet ORAL EVERY 4-6 HOURS NEEDED as needed for severe pain Qty = 15 Start taking the following new medications: Amlodipine Besylate (Norvasc) 5 MG TABLET 1 Tablet ORAL DAILY Qty = 30 No Refills Instructions: . Pantoprazole Sodium (Pantoprazole Sodium) 40 MG TABLET.DR 1 Tablet ORAL DAILY Qty = 30 No Refills Copies To: [place] VILCHIS,Vamsi Blanchard; Sony Mendez MD; Kelvin Felix MD, MD, Stephen
[2018-01-22] VITALS: BP 144/74
[2018-01-22 05:49] LABS: ABSOLUTE BASOPHIL COUNT 0 /CUMM (0.0-0.2); ABSOLUTE EOSINOPHIL COUNT 0.1 /CUMM (0.0-0.7); ABSOLUTE GRANULOCYTE CT 4.3 /CUMM (1.4-6.5); ABSOLUTE LYMPH COUNT 2.5 /CUMM (1.2-3.4); ABSOLUTE MONOCYTE COUNT 0.7 /CUMM (0.10-0.60); BASOPHIL % 0.3 % (0.0-2.0); EOSINOPHIL % 1.8 % (0-5); GRANULOCYTE % 56.4 % (42.2-75.2); HEMATOCRIT 41.6 % (42-52); MEAN CORPUSCULAR HGB CONC 33.8 G/DL (33.0-37.0); MEAN CORPUSCULAR VOLUME 97.4 FL (80.0-94.0); MEAN PLATELET VOLUME 7.2 FL (7.4-10.4); PLATELET COUNT 338 /CUMM (130-400); RBC DISTRIBUTION WIDTH 12.4 % (11.5-14.5); RED BLOOD CELL CT 4.27 /CUMM (4.70-6.10); WHITE BLOOD CELL COUNT 7.6 /CUMM (4.8-10.8)
--- NOTE | 2018-01-22 06:58 | PN- Housestaff ---
See Addendum Subjective Follow-up For: Abdominal Pain Rule out ACS Subjective: Mr Acuña was seen and examined this morning. He is resting comfortably in bed. States that he had an uneventful night and was able to get some rest. He' s has been able to tolerate by mouth intake well. Denies any abdominal pain or abdominal discomfort. Denies any chest pain or chest discomfort. Denies any fever, chills, nausea, vomiting. Endorses that would like to be discharged this morning. Review of Systems Constitutional: Reports: see HPI. Objective Last 24 Hrs of Vital Signs/I&O Vital Signs Date Time Temp Pulse Resp B/P B/P Pulse O2 O2 Flow FiO2 Mean Ox Delivery Rate 01/22 09 80 140/80 01/22 0800 99.0 78 18 134/84 96 Room Air 01/22 0000 98.1 70 18 144/74 97 Room Air 01/21 1600 98.0 78 20 150/100 98 Room Air 01/21 1200 99.2 80 20 142/96 98 Room Air 01/21 1045 98.1 93 20 138/96 Intake & Output 01/22 1600 01/22 0800 04 0000 Intake Total 480 120 Output Total Balance 480 120 Intake, Oral 480 120 Physical Exam General Appearance: Alert, Oriented X3, Cooperative Skin: No Rashes HEENT: Mucous Membr. moist/pink Cardiovascular: Regular Rate, Normal S1, Normal S2 Lungs: Clear to Auscultation Abdomen: Normal Bowel Sounds, Soft, No Tenderness, CVA negative Neurological: Normal Gait, Normal Speech, Strength at 5/5 X4 Ext Extremities: No Clubbing, No Cyanosis, No Edema Current Medications: Current Medications Sig/Vamshi Start time Last Medication Dose Route Stop Time Status Admin Acetaminophen 650 MG Q4P PRN 01/20 0400 AC PO Amlodipine Besylate 5 MG DAILY 01/21 1000 AC 01/22 PO 0907 Duloxetine HCl 60 MG DAILY 01/20 1000 AC 01/22 PO 0906 Hydromorphone HCl 2 MG Q6P PRN 01/20 0415 AC 01/20 PO 0507 Ketorolac 30 MG Q6-PRN PRN 01/20 0400 AC 01/21 Tromethamine IV 0613 Morphine Sulfate 2 MG Q6P PRN 01/21 1145 CAN IV Nitroglycerin 0.4 MG ONCE ONE 01/21 1130 DC 01/21 SL 01/21 1131 1130 Omeprazole 20 MG BID 01/21 1000 AC 01/22 PO 0907 Ondansetron HCl 4 MG Q6P PRN 01/20 0400 IV Patient Medication 1 ED ONE ONE 01/21 1100 TX 01/21 [facility] ED 01/21 1101 1130 Last 24 Hrs of Lab/Adán Results Last 24 Hrs of Labs/Mics: Laboratory Tests 01/22/18 0530: Anion Gap 8, Estimated GFR > 60, BUN/Creatinine Ratio 16.3, CBC w Diff NO MAN DIFF REQ, RBC 4.27 L, MCV 97.4 H, MCH 33.0 H, MCHC 33.8, RDW 12.4, MPV 7.2 L , Gran % 56.4, Lymphocytes % 32.8, Monocytes % 8.7, Eosinophils % 1.8, Basophils % 0.3, Absolute Granulocytes 4.3, Absolute Lymphocytes 2.5, Absolute Monocytes 0.7 H, Absolute Eosinophils 0.1, Absolute Basophils 0 01/21/18 1815: Troponin I < 0.01 01/21/18 1145: Anion Gap 11, Estimated GFR > 60, BUN/Creatinine Ratio 13.3, Troponin I < 0.01, CBC w Diff MAN DIFF ORDERED, RBC 4.38 L, MCV 96.2 H, MCH 32.9 H, MCHC 34.2, RDW 12.3, MPV 7.4, Gran % 62.4, Lymphocytes % 28.8, Monocytes % 8.2, Eosinophils % 0.2, Basophils % 0.4, Absolute Granulocytes 7.6 H, Absolute Lymphocytes 3.5 H, Absolute Monocytes 1.0 H, Absolute Eosinophils 0, Absolute Basophils 0.1, Platelet Estimate VERIFIED BY SMEAR, Normocytic RBCs VERIFIED, Normochromic RBCs VERIFIED 01/21/18 1126: Troponin I Cancelled Assessment/Plan Assessment: Mr Acuña is a 52-year-old male with a PMH significant for chronic back pain, chronic lung disease who presented with intractable L back and L flank pain with associated nausea and vomiting, this was initially resolved after receiving demerol in the ED pain. He was discharged home but returned with persistent pain. He alsoendorsed having dark red/coffee-ground emesis secondary to multiple episodes of retching. He has no associated urinary symptoms. Vital signs on admission: T 97.7, P 87, RR 22, BP 169/6, pulse ox 100% on room air Labs significant for: WBC 20, bands 1, lipase 440 Problem list #Intractable left back and flank pain #Chest Pain Syndrome #Hematemesis #Nausea and vomiting #Leukocytosis #Hypertension #Headache Plan -Continue in observation on telemetry. Can be discharged later this am. -Pain control with by mouth Dilaudid/Toradol CT [employer] was reviewed showing no claim history of narcotics -Follow-up urinalysis for microscopic hematuria, discussed the CT abdomen and pelvis with application support radiologist at [place] radi[facility] Dr. Talavera, who confirmed that there is no nephrolithiasis seen. -Repeat CT abdomen and Pelvis with IV contrast. -Follow-up blood cultures -Low suspicion for pancreatitis given presentation, elevated lipase may be secondary to repeated episodes of emesis -Continue PO PPI -Elevated WBC likely reactive, as afebrile. Will monitor CBC in AM. -Control nausea with IV Zofran and Phenergan -Continue home duloxetine -Amlodipine 5 mg PO. -ACS ruled out, come small Q waves noted in Leads 1 and AVL. Will require an Echocardiogram and will be considered for a baseline stress test as an outpatient. -Headache has resolved. Tylenol PRN. Diet: Nothing by mouth, for now, can advance as tolerated. DVT prophylaxis: Lovenox, Alps CODE STATUS: Full code Problem List: 1. Elevated lipase 2. Upper abdominal pain, unspecified 3. Dehydration Pain Ratin Pain Location: No Pain Pain Goal: Remain pain free Pain Plan: Tylenol & Dilaudid Tomorrow's Labs & Rationales: No Labs needed
[2018-01-22 08:00] VITALS: BP 134/84
[2018-01-22] MEDS ORDERED: PANTOPRAZOLE SO40 M1 PO (09:06)
[2018-01-22 09:07] VITALS: BP 140/80
[2018-01-22] MEDS ORDERED: NORVASC5 M1 PO (09:07)
== END 2018-01-22 10:30 | DRG 384 ==
LOC: ERH 01:50 → 2NA 03:17 → ERHI 03:17 → ENRESERV 03:50 → 2NA 04:32 → CRI 15:01
PROVIDERS: Emergency Medicine; Internal Medicine; Student in an Organized Health Care Education/Training Program
PROC: 0DB68ZX Excision of Stomach, Via Natural or Artificial Opening Endoscopic, Diagnostic (ICD-10-PCS; principal; 2018-01-20)
DX: K26.9 Duodenal ulcer, unspecified as acute or chronic, without hemorrhage or perforation (principal); A69.20 Lyme disease, unspecified; K92.0 Hematemesis; K44.9 Diaphragmatic hernia without obstruction or gangrene; J44.9 Chronic obstructive pulmonary disease, unspecified; R07.89 Other chest pain; I10 Essential (primary) hypertension; M54.9 Dorsalgia, unspecified; D72.825 Bandemia; Z88.5 Allergy status to narcotic agent; Z79.891 Long term (current) use of opiate analgesic; Z87.891 Personal history of nicotine dependence; F12.90 Cannabis use, unspecified, uncomplicated; F41.9 Anxiety disorder, unspecified
CPT/HCPCS: 6030; 70551; CCU; 36415; 36592; 71045; 74177; 80307; 81003; 82436; 87040; 87086; 88305; 88312; 93005; 93010; 96361; 96374; 96375; G0378; J0131; J1650; J1885; J2405; J2550; J7042